=== PATIENT | female | born 1950 ===

== ENCOUNTER 2017-08-18 21:10 | Inpatient (IN) | payer MEDICARE, OTHER ==
[~2017-08-18] VITALS: Ht 147.3 cm; Wt 107.1 kg
[2017-08-18 22:35] VITALS: BP 111/63; PULSE 59; RESP 16; O2SAT 100
[2017-08-18] MEDS ORDERED: WARF3TAB7 PO (22:49)
[2017-08-18] MEDS ORDERED: CETI-343 PO (22:49)
[2017-08-18] MEDS ORDERED: POTA20TA16 PO (22:49)
[2017-08-18] MEDS ORDERED: TORS20TA3 PO ×2 (22:49)
[2017-08-18] MEDS ORDERED: METF500T4 PO (22:49)
[2017-08-18] MEDS ORDERED: METO-386 PO (22:49)
[2017-08-18] MEDS ORDERED: PHEN97.511 PO (22:50)
[2017-08-18] MEDS ORDERED: BECL8.7A6 INHALATION (22:56)
[2017-08-18] MEDS ORDERED: PROP10DR5 BOTH_EARS (22:56)
[2017-08-18] MEDS ORDERED: RANI150C4 PO (22:56)
[2017-08-18] MEDS ORDERED: CALC-1021 PO (22:56)
[2017-08-18] MEDS ORDERED: MS15TCR PO (23:00)
[2017-08-18] MEDS ORDERED: INSU3INS3 SUBQ (23:00)
[2017-08-18] MEDS ORDERED: OXYC-474 PO (23:00)
[2017-08-18] MEDS ORDERED: MS30TCR PO (23:00)
[2017-08-18] MEDS ORDERED: PREG100C PO (23:00)
[2017-08-18] MEDS ORDERED: INSU100V7 SUBQ (23:00)
--- NOTE | 2017-08-18 23:10 | ED.REPORT ---
HPI-Extremity Problem Lower Date of Service Aug 18, 2017 ED Provider: Simone Dunham MD Pt is a 67 year old female with a history of recurrent abscesses, DM, CHF, and previous DVT on Warfarin who presents to the ED complaining of an ulcer to her right lower leg onset two weeks ago. She recently finished a 7-day antibiotic treatment of augmentin and cipro for her leg, but denies relief of pain. She was hospitalized in May and June of 2017 at [facility] for infection of her kidneys and C. Diff. Pt uses a wheelchair and sleeps in her chair, but states that she can ambulate with a walker at home. Not having fevers Records were requested and not received from [facility]. Nursing Notes Stated Complaint: RIGHT LEG BLISTER/CELLULITES Chief Complaint: Skin Rash/Abscess Nursing Notes Reviewed: Yes Scheduled Beclomethasone Dipropionate (Qvar) 8.7 Gm Aer.w.adap 80 MCG INHALATION DAILY Calcium Carbonate/Vitamin D3 (Oyster Shell Calcium + D Cplt) 500 Mg-200 Tablet 1 EACH PO DAILY Cetirizine HCl (24Hour Allergy) 10 Mg Tablet 10 MG PO DAILY Insulin Glargine (Lantus U100 Insulin Vial) 100 Unit/Ml Vial 40 UNIT SUBQ HS Insuln Asp Prt/Insulin Aspart (NovoLOG 70/30 U100 Insulin Flexpen) 100 Unit/Ml Unit 40 UNIT SUBQ BID Metformin (Metformin) 500 Mg Tablet 1,000 MG PO BID Metoprolol Succinate ER (Metoprolol Succinate ER) 25 Mg Tab.er.24h 25 MG PO DAILY Morphine Sulfate ER (MS Contin) 30 Mg Tablet.er 30 MG PO BID Morphine Sulfate ER (MS Contin) 15 Mg Tablet.er 15 MG PO daily at noon Potassium Chloride (Potassium Chloride) 20 Meq Tab.er.prt 20 MEQ PO DAILY TAKE WITH FOOD Pregabalin (Lyrica) 100 Mg Capsule 100 MG PO TID Propylene Glycol/Peg 400 (Systane Gel Eye Drops) 10 Ml Drops.gel 1 DROP BOTH_ EARS BID Ranitidine (Ranitidine) 150 Mg Capsule 150 MG PO BID Torsemide (Torsemide) 20 Mg Tablet 40 MG PO DAILY Torsemide (Torsemide) 20 Mg Tablet 20 MG PO daily @1400 Warfarin Sodium (Warfarin Sodium) 3 Mg Tablet 6 MG PO DAILY Scheduled PRN Oxycodone (Roxicodone) 5 Mg Tablet 10 MG PO QID PRN PRN For Pain Phenazopyridine (Azo Urinary Pain Relief) 97.5 Mg Tablet 195 MG PO TID PRN PRN bladder pain General Time Seen by MD: 22:33 Chief Complaint Other (Ulcer to right lower leg ) Hx Obtained From: Patient Arrived By: Wheelchair Onset Occurred: More than a week ago... (2 weeks) Symptom Duration: Constant Location: : Leg right Quality: Painful Severity: Current: Moderate Severity: Maximum: Moderate Recent Healthcare: Recent doctor visit, Recent hospitalization Similar Sx Previous: Yes Past Medical History Past Medical History Notes: Full code Goes to [facility] Uses wheelchair but is able to ambulate with walker at home Past Medical History Recurrent abscesses Acid reflux Cellulitis on legs Reports: Congestive heart failure, Diabetes mellitus Social History Other Social History: Good social support Ambulatory Status Wheelchair Review of Systems Painful ulcer on right leg and foot Cellulitis pain Musculoskeletal: Reports: Extremity pain Complete sys rev & neg: except as marked. Cardiovascular: Reports: Edema, Denies: Chest pain Female: Reports: Dysuria Physical Exam Initial Vital Signs Vital Signs (First) Date Time Temp Pulse Resp B/P Pulse Ox O2 Delivery O2 Flow Rate FiO2 08/18/17 22:35 37.2 59 16 111/63 100 Room Air Initial VS: Reviewed Head / Eyes: Atraumatic, Normocephalic Neck: Supple, Full range of motion Neurologic: Alert, Oriented, Nonfocal Psychiatric: Mood/affect normal, Behavior normal, Normal thought content Lower Extremity / Pelvis / MS: Neurologic intact, Vascular intact 4x6 cm superficial ulceration above lateral malleolus 7x4 cm bullae overlying tibia with surrounding erythema and warmth Chronic venous stasis changes bilaterally No lymphangitic streaking Ankle / Foot: Neurologic intact, Vascular intact Right foot is warm with no pulses appreciated Ulcer over distal 5th metatarsal on right foot with full thickness General/Constitutional: Awake, Alert Respiratory / Chest: Atraumatic, No respiratory distress Bibasilar crackles bilaterally Cardiovascular: Heart rate NL, Regular rhythm, Heart sounds NL, No gallop, No murmurs, No rubs Skin: Warm, Dry Rash / Lesion Notes: Sacral and buttock decubiti present no discharge or erythema. Also has tinea intertrigo in the groin and abdominal pannus Fungal changes on skin folds of groin Abdomen: Soft, Non-tender RUQ scar from cholecystectomy Interpretation & Diagnostics ULTRASOUND RIGHT LEG: No evidence of DVT. BLADDER SCAN: 74 cc's of urine Lab Results Interpretation Result Diagram: 08/19/17 0033 08/19/17 0033 Test 08/19/17 00:33 08/19/17 00:38 White Blood Count 8.7th/mm3 (3.8-10.1) Red Blood Count 4.57mil/mm3 (3.90-5.20) Hemoglobin 10.6g/dL (12.0-15.6) Hematocrit 35.3% (35.0-46.0) Mean Corpuscular Volume 77.2fL (81-100) Mean Corpuscular Hemoglobin 23.2pg (27.0-35.0) Mean Corpuscular Hemoglobin Concent 30.0% (32.0-37.0) Red Cell Distribution Width 15.6% (12.3-15.4) Platelet Count 302bil/L (150-400) Neutrophils (%) (Auto) 71.9% (40-74) Lymphocytes (%) (Auto) 19.3% (14-46) Monocytes (%) (Auto) 6.1% (4-12) Eosinophils (%) (Auto) 1.8% (0-5) Basophils (%) (Auto) 0.3% (0-3) Erythrocyte Sedimentation Rate 72mm/hr (0-40) Prothrombin Time 12.5sec (8.1-12.5) Prothromb Time International Ratio 1.16ratio Sodium Level 132mEq/L (134-144) Potassium Level 4.8mEq/L (3.5-5.2) Chloride Level 90mEq/L (97-108) Carbon Dioxide Level 28mmol/L (18-29) Blood Urea Nitrogen 27mg/dL (8-27) Creatinine 1.05mg/dL (0.57-1.00) Estimat Glomerular Filtration Rate 75mL/min (>59) Glucose Level 369mg/dL (60-99) Calcium Level 8.3mg/dL (8.5-10.1) Magnesium Level 1.9mg/dL (1.6-2.6) Total Bilirubin 0.2mg/dL (0.0-1.2) Aspartate Amino Transf (AST/SGOT) 15U/L (0-50) Alanine Aminotransferase (ALT/SGPT) 8U/L (0-32) Alkaline Phosphatase 93U/L (25-165) Pro-B-Type Natriuretic Peptide 86pg/mL (0-301) Total Protein 7.8g/dL (6.4-8.4) Albumin 3.1g/dL (3.4-5.0) Hold [place] Top Tube Received (Received) Lab Results Interpretation: INR 1.16 ECG Interpretation ECG Interpretation: Low voltage Sinus rhythm, rate 98 Time: 22:53 Interpreted by: ED physician X-Ray Chest Interpretation Chest Xray Interpretation: Elevated right la-diaphragm No acute changes View: Portable, 1 view Interpretation / Wet Read by: Wet read ED physician X-Ray Interpretation Xray Interpretation: Right Foot X-Ray: Periosteal distal 5th metatarsal with cause for concern of osteomyelitis X-Ray Ordered: Foot right Interpretation / Wet Read by: Wet read ED physician Xray Interpretation: Right Tibia/Fibula X-Ray: No acute bony changes X-Ray Ordered: Tibia fibula right Interpretation / Wet Read by: Wet read ED physician Re-Eval/Medical Decision Med Decision/Clinical Course 67-year-old female from [place] and normally followed at the [facility] clinic. She is here tonight because of recurrent large blisters on her right leg. She has chronic venous stasis changes and there does appear to be some cellulitic change associated with the right leg blisters. Additionally her right foot has a full-thickness ulcer with erythema and warmth and changes I find suspicious for osteomyelitis on plain films. She has an elevated white blood cell count and an elevated ESR. Additionally she has chronic sacral and buttock decubiti. Blood cultures have been obtained, she has not yet provided a urine specimen. She has been started on meropenem for presumed infected diabetic foot ulcer with osteomyelitis. She will be admitted to the hospitalist service. She has chronic atrial fibrillation and INR are subtherapeutic. I will defer correction of her INR to the hospitalist service given her chronic atrial fibrillation. Source of Hx: Old records Summary of Info: Records were requested and not received from [facility]. Re-Evaluation/Progress #1: Time of Eval: 22:39 Re-Evaluation/Progress Note: Pt rechecked. Checked current medications with pt. Re-Evaluation/Progress #2: Time of Eval: 01:43 Re-Evaluation/Progress Note: Pt rechecked. Discussed all imaging results and plan for admission. Pt wants to be full code. Pt understands and agrees with plan. All questions addressed. Consultation #1: Referral / Consult Name: Darvin Lemons MD Call Returned at: 01:49 Clinic Charge Nurse: Will see patient, Agrees with eval, Agrees with plan Note: Discussed pt's case with perforating machine operator, Dr. Lemons. He will see pt tomorrow. Consultation #2: Referral / Consult Name: Chad Bermudez MD Consulted With: Hospitalist Call Returned at: 01:53 Clinic Charge Nurse: Will see patient, Agrees with plan, Accepts admit Note: Discussed pt's case with hospitalist, Dr. Bermudez. Counseled Regarding: Diagnosis, Lab results, Need for admission Discharge & Departure Impression: Primary Impression: Osteomyelitis of right foot Osteomyelitis type: unspecified type Qualified Code: M86.9 - Osteomyelitis, unspecified Additional Impressions: Venous stasis of lower extremity Type 2 diabetes mellitus, uncontrolled Diabetes mellitus complication status: with unspecified complications Diabetes mellitus assistant terminal manager insulin use: unspecified residential insulin use status Qualified Code: E11.8 - Type 2 diabetes mellitus with unspecified complications Inadequate anticoagulation Disposition: ADMITTED TO HOSPITAL Discharge Condition All VS Reviewed: Yes Condition: Stable Scribe Attestation Portions of this note were transcribed by Fabiana Lazar. I, Dr. Dunham, personally performed the history, physical exam and medical decision-making; I reviewed and confirmed the accuracy of the information in the transcribed note. Simone Dunham MD Aug 18, 2017 23:10 Fabiana Lazar Aug 18, 2017 23:11
[2017-08-19] MEDS ORDERED: Morphine ER 100 mg (MS Contin) Tablet PO ONE (00:25)
[2017-08-19] MEDS ORDERED: Morphine ER 30 mg (MS Contin) Tablet PO ONE (00:30)
[2017-08-19 00:42] LABS: BASOPHILS % (AUTO) 0.3 % (0-3); EOSINOPHILS % (AUTO) 1.8 % (0-5); MONOCYTES % (AUTO) 6.1 % (4-12); Mean Corpuscular Hemoglobin 23.2 pg (27.0-35.0); Mean Corpuscular Volume 77.2 fL (81-100); NEUTROPHILS % (AUTO) 71.9 % (40-74); Platelet Count 302 bil/L (150-400)
[2017-08-19 00:58] LABS: INR 1.16 ratio
[2017-08-19 01:00] LABS: ERYTHROCYTE SEDIMENTATION RATE 72 mm/hr (0-40)
[2017-08-19 01:18] LABS: Magnesium 1.9 mg/dL (1.6-2.6)
[2017-08-19 01:28] VITALS: BP 116/68; PULSE 59; RESP 16; O2SAT 100
[2017-08-19] MEDS ORDERED: Meropenem Inj 1,000 MG in 0.9% Sodium Chloride 50 ML IV ONE (01:50)
[2017-08-19] MEDS ORDERED: Alum-Mag Hydrox-Simeth 30 mL Suspension PO PRN ×2 (02:25→02:30)
[2017-08-19] MEDS ORDERED: Ondansetron 2 mg/mL 2 mL Inj IVPUSH PRN ×2 (02:25→02:30)
[2017-08-19] MEDS ORDERED: Polyethylene Glycol (PEG) 17 Gm Powder PO PRN (02:30)
[2017-08-19] MEDS ORDERED: Phenazopyridine 97.5 mg Tablet PO PRN (02:35)
[2017-08-19] MEDS: Vancomycin Dose per Pharmacist XX SCH ×2 (02:40→08:26)
[2017-08-19] MEDS ORDERED: Glucose 40% Oral Gel 15 Gm Tube PO PRN (02:40)
[2017-08-19 03:08] VITALS: BP 125/73; PULSE 107; RESP 18; O2SAT 90
--- NOTE | 2017-08-19 03:13 | PCM.HPMED ---
Subjective Date of Service Aug 19, 2017 Primary Provider: Admitting Physician: Chad Bermudez MD Primary Care Physician: Nopodilon Attending Physician: Chad Bermudez MD Admit Status: Full Admit Chief Complaint: RLE Cellulitis/Ulcer History of Present Illness: Patient is a 67 y/o Female with past medical history of DMT2, CHF, DVTs on Warfarin, and recurrent abscesses with two weeks of lower extremity swelling and erythema. She has recently completed a 7 day antibiotic regimen 2 days ago of Augmentin and Cipro. Last abx dose was 2 days ago. Patient denies any relief of pain or swelling in the RLE. She states that she has had blisters on the back of her leg. The blister on the back was drained previously, but another on the front appeared about a day ago. Associated symptoms include diarrhea which started today, and urinary retention. Patient denies fevers/ chills, CP, SOB, ABD pain, Nausea, vomiting. Patient walks with a walker normally, but has been using a wheelchair while she has an infection in her leg. She also denotes posterior painful cramps in the RLE. Patient was recently hospitalized in May and June of this year for kidney infection and CDiff. In the ED, Patient was afebrile and normotensive. She was given one dose of Meropenem 1g IV and Morphine and Oxycodone for pain. Review of Systems: ROS reviewed and negative unless otherwise noted above. Home Medications Beclomethasone Dipropionate (Qvar) 8.7 Gm Aer.w.adap 80 MCG INHALATION DAILY Calcium Carbonate/Vitamin D3 (Oyster Shell Calcium + D Cplt) 500 Mg-200 Tablet 1 EACH PO DAILY Cetirizine HCl (24Hour Allergy) 10 Mg Tablet 10 MG PO DAILY Insulin Glargine (Lantus U100 Insulin Vial) 100 Unit/Ml Vial 40 UNIT SUBQ HS Insuln Asp Prt/Insulin Aspart (NovoLOG 70/30 U100 Insulin Flexpen) 100 Unit/Ml Unit 40 UNIT SUBQ BID Metformin (Metformin) 500 Mg Tablet 1,000 MG PO BID Metoprolol Succinate ER (Metoprolol Succinate ER) 25 Mg Tab.er.24h 25 MG PO DAILY Morphine Sulfate ER (MS Contin) 30 Mg Tablet.er 30 MG PO BID Morphine Sulfate ER (MS Contin) 15 Mg Tablet.er 15 MG PO daily at noon Potassium Chloride (Potassium Chloride) 20 Meq Tab.er.prt 20 MEQ PO DAILY TAKE WITH FOOD Pregabalin (Lyrica) 100 Mg Capsule 100 MG PO TID Propylene Glycol/Peg 400 (Systane Gel Eye Drops) 10 Ml Drops.gel 1 DROP BOTH_ EARS BID Ranitidine (Ranitidine) 150 Mg Capsule 150 MG PO BID Torsemide (Torsemide) 20 Mg Tablet 40 MG PO DAILY Torsemide (Torsemide) 20 Mg Tablet 20 MG PO daily @1400 Warfarin Sodium (Warfarin Sodium) 3 Mg Tablet 6 MG PO DAILY PMH Recurrent abscesses Acid reflux Cellulitis on legs Congestive heart failure Diabetes mellitus Surgical History Cholecystectomy Family History Noncontributory Social History Hx Alcohol Use: No Hx Substance Use: No Living Arrangement: with Family Exam Vital Signs Vital Sign - Last Date Time Temp Pulse Resp B/P Pulse Ox O2 Delivery O2 Flow Rate FiO2 08/19/17 01:28 37.1 59 16 116/68 100 Room Air Exam Constitutional: Somnolent, but rousable to voice and answers questioning. Alert and oriented x3. No acute distress. Head: normocephalic and atraumatic Eyes: pupils equal round and reactive to light. No scleral icterus Heart: regular rate and rhythm. no murmurs, rubs, or gallops. 1+ pitting edema. Lungs: clear to auscultation, no wheeze, rales, or rhonchi ABD: soft, nontender. suprapubic fullness. bowel sounds present throughout. Musculoskeletal: moves all four extremities appropriately Neuro: CN II-XII intact. no focal deficits. Skin: Circumferential nonblanching erythema on RLE. 5x3" tense bulla on anterior aspect of RLE draining serosanguinous fluid. Old drained bulla on posterior aspect of RLE. No crepitus, but associated tenderness. 0.5x0.5" ulcer on lateral aspect of 5th metatarsal of the RLE. Chronic venostasis changes to the LLE with associated tenderness. No obvious wounds or ulcers on the LLE. Psych: Sleepy, but rousable. Appropriate mood and affect. Lab and Diagnostics Labs Item Value Date Time Red Blood Count 4.57 mil/mm3 08/19/1732 Hematocrit 35.3 % 08/19/1732 Mean Corpuscular Volume 77.2 fL L 08/19/1732 Mean Corpuscular Hemoglobin 23.2 pg L 08/19/1732 Mean Corpuscular Hemoglobin Concent 30.0 % L 08/19/1732 Red Cell Distribution Width 15.6 % H 08/19/1732 Neutrophils (%) (Auto) 71.9 % 08/19/1732 Lymphocytes (%) (Auto) 19.3 % 08/19/1732 Monocytes (%) (Auto) 6.1 % 08/19/1732 Eosinophils (%) (Auto) 1.8 % 08/19/1732 Basophils (%) (Auto) 0.3 % 08/19/1732 Erythrocyte Sedimentation Rate 72 mm/hr H 08/19/1732 Lactic Acid Level 1.5 mmol/L 08/19/1732 Total Creatine Kinase 44 U/L 08/19/1732 Estimat Glomerular Filtration Rate 75 mL/min 08/19/1732 Calcium Level 8.3 mg/dL L 08/19/1732 Magnesium Level 1.9 mg/dL 08/19/1732 Total Bilirubin 0.2 mg/dL 08/19/1732 Aspartate Amino Transf (AST/SGOT) 15 U/L 08/19/1732 Alanine Aminotransferase (ALT/SGPT) 8 U/L 08/19/1732 Alkaline Phosphatase 93 U/L 08/19/1732 Pro-B-Type Natriuretic Peptide 86 pg/mL 08/19/1732 Total Protein 7.8 g/dL 08/19/1732 Albumin 3.1 g/dL L 08/19/1732 Prothrombin Time 12.5 sec 08/19/1732 Prothromb Time International Ratio 1.16 ratio 08/19/1732 Result Diagram: 08/19/173208/19/1732 Microbiology Blood Cultures Pending X-Rays, CTs and MRIs Official XR Right foot read pending Official CXR read pending 12-lead ECG Sinus rhythm HR 98 Assessment & Plan Patient is a 67 y/o Female with past medical history of DMT2, CHF, DVTs on Warfarin, and recurrent abscesses with two weeks of lower extremity swelling and erythema. She has recently completed a 7 day antibiotic regimen 2 days ago of Augmentin and Cipro. Last abx dose was 2 days ago. -Acute Right Foot Diabetic Ulcer, POA, Active, Stable, r/o Osteomyelitis - Patient w/ h/o DMT2 on insulin with infection to RLE and new 0.5x0.5" ulcer to lateral aspect of R 5th metatarsal - Elevated ESR and radiologic findings suggestive of osteomyelitis - Podiatry has been consulted and will see patient in the AM - Patient given one dose of Meropenem 1g IV in the ED - Start patient on Vancomycin, pharmacy to dose. - MRI of Right foot to confirm diagnosis - Consult Infectious Disease - Acute Cellulitis to Right Lower Extremity, POA, Active, Stable, r/o Necrotizing Fasciitis - Patient has cellulitic infection with bullae that has failed outpatient treatment with 7 days of Augmentin and Cipro. - LRINEC Score is 5 with moderate risk for Necrotizing Fasciitis infection - Patient received one dose of 1g Meropenem in ED - Start Vancomycin, pharmacy to dose - Start empiric Clindamycin 600mg IV Q8 - IVF @75ml/hr - patient has h/o CHF with no known status of cardiac function -Microcytic Anemia, chronicity unknown, POA, Active, Stable - Hgb 10.6 with MCV 77.2 - Order Iron panel, replenish if low - Monitor - History of Congestive Heart Failure, type unknown, Chronic, Stable - Continue home dose of Torsemide - Monitor - History of Type 2 Diabetes Mellitus, Chronic, Stable - Hold Metformin - Continue home dose Lantus HS - Lispro low correction algorithm FULL CODE Patient is admitted for suspicion of osteomyelitis after failed outpatient treatment for cellulitis. Expected length of stay >2 midnights. Pain Evaluation: Adequate Pain Control GI Prophylaxis: Proton Pump Inhibitor VTE Prophylaxis Indicated: Meets Criteria for Anticoag Therapy VTE Prophylaxis: Theraputic Anticoag with Warfarin VTE Mechanical Devices: Intermittant Pneumatic CD Resuscitation Status: CPR: Attempt Resuscitation Attending Statement The patient was seen and examined together with Dr. Thapa on 08/19 and I agree with the history, exam and plan as outlined in the note above. Narendra Thapa DO Aug 19, 2017 03:13 Chad Bermudez MD Aug 19, 2017 06:44
[2017-08-19] MEDS ORDERED: Vancomycin Inj 2,000 MG in 0.9% Sodium Chloride 500 ML IV ONE (04:00)
[2017-08-19 04:07] LABS: Unsaturated Iron Binding 214.8 ug/dL
[2017-08-19] MEDS: 0.9% Sodium Chloride 1,000 ML IV SCH ×2 (04:11→16:55)
[2017-08-19] MEDS ORDERED: Clindamycin Inj 600 MG in IV Premix 1 EACH IV SCH (04:30)
--- NOTE | 2017-08-19 04:53 | NUR ---
Admission Pt admitted to [facility] rm 1028 at 0245 from the ED. Pt took her to ED due to her leg/foot and glute wounds. Pt is A/O x3, able to make needs known. C/o pain 5/10 on arrival. Was medicated prior to arrival in ED. IV to Rt AC patent with ABO running. IV fluids started. Pt is non compliant diabetic and needs carb consistent diet. Pt arrived in a P500 bed from the ED. Pt is cont B/B, attempted to use BSC but transfer was very unsteady, advised will need to use bed cunha until transfer can be safely done. Pt uses cane at baseline at home and sleeps in a recliner. Pt to be seen by wound care. Covered glutes with mepilex to protect when Pt uses bed cunha. Pt is CPR. Oriented to room and call light. at bedside. Care continues
[2017-08-19 05:06] LABS: INR 1.2 ratio
[2017-08-19 05:52] LABS: APPEARANCE,URINE HAZY (CLEAR,HAZY); COLOR,URINE YELLOW (YELLOW); OCCULT BLOOD,URINE LARGE (NEGATIVE); PH,URINE 5.5 (5.0-8.0); UROBILINOGEN,URINE NORMAL (NORMAL); YEAST,URINE MANY (NONE SEEN)
[2017-08-19 08:16] VITALS: BP 115/57; PULSE 105; RESP 20; O2SAT 95
[2017-08-19] MEDS: Potassium Chloride 20 mEq SR Tablet PO SCH (08:25)
[2017-08-19] MEDS: MeTOProlol XL 25 mg ER24 Tablet PO SCH (08:25)
[2017-08-19] MEDS: Fluticasone 100 mCg Inhaler INHALATION SCH ×2 (08:26→20:08)
[2017-08-19] MEDS: Insulin LISPRO 300 Unit/3 mL Inj SUBQ SCH ×4 (08:27→21:59)
--- NOTE | 2017-08-19 08:32 | DRSVH ---
PROCEDURE: X-RAY CHEST ONE VIEW, PORTABLE ([id number]) INDICATIONS: Right foot and leg swelling and erythema, diabetic TECHNIQUE: One view of the chest was acquired. COMPARISON: None. FINDINGS: Surgical changes and devices: None in the chest, right upper quadrant presumed cholecystectomy clips . Lungs and pleura: No pleural effusions or pneumothorax. Lungs are clear. Mediastinum: Mediastinal contours appear normal. Heart size is normal. Bones and chest wall: No suspicious bony lesions. Overlying soft tissues appear unremarkable. IMPRESSION: Asymmetric elevation of the right hemidiaphragm, no definite acute disease. The inspirat ory volume is reduced bilaterally, disallowing clear visualization of significant portions of each francesca ng base, greater on the right left. A followup bite 2 view the inspiratory chest plain film is recom mended for more accurate assessment. Dictated by: Silverio Lentz M.D. on 08/19/2017 at 8:29 Approved by: Silverio Lentz M.D. on 08/19/2017 at 8:31
--- NOTE | 2017-08-19 08:35 | DRSVH ---
PROCEDURE: X-RAY RIGHT FOOT COMPLETE, MINIMUM THREE VIEWS ([id number]) INDICATIONS: Right foot and leg swelling and erythema, diabetic TECHNIQUE: 3 views of the foot were acquired. COMPARISON: None. FINDINGS: Bones: No fractures or dislocations. No definite bony lesions. There is mild periosteal thickening involving the needle border of the second and third metatarsal bones, and on the oblique views at th e lateral aspect of the fifth metatarsal. Small vessel calcifications indicate likelihood of long-st anding diabetes. Soft tissues: No tibiotalar joint effusion. Achilles tendon appears normal. IMPRESSION: Small vessel calcifications noted consistent with long-standing diabetes. Periosteal shivani nges as discussed above involving the second, third and fifth metatarsal bones, but without definite findings diagnostic of osteomyelitis. Old trauma might explain the appearance. The emergency room martin mota is aware of the fifth metatarsal findings, and has some degree of concern for osteomyelitis in that area. Depending on the clinical status followup by contrast enhanced MR scanning may be shailesh anted. Note: These findings are concordant with the preliminary interpretation. Dictated by: Silverio Lentz M.D. on 08/19/2017 at 8:31 Approved by: Silverio Lentz M.D. on 08/19/2017 at 8:33
--- NOTE | 2017-08-19 08:36 | DRSVH ---
PROCEDURE: X-RAY RIGHT TIBIA/FIBULA, TWO VIEWS ([id number]) INDICATIONS: r foot and leg swelling and erythema, diabetic TECHNIQUE: 2 views of the tibia and fibula were acquired. COMPARISON: None. FINDINGS: Bones: No fractures or dislocations. No suspicious bony lesions. Soft tissues: No suspicious soft tissue calcifications or masses. IMPRESSION: No acute disease. Note: These findings are concordant with the preliminary interpretation. Dictated by: Silverio Lentz M.D. on 08/19/2017 at 8:34 Approved by: Silverio Lentz M.D. on 08/19/2017 at 8:34
--- NOTE | 2017-08-19 12:13 | CONS ---
[address] [address] CONSULTATION REPORT PATIENT: GUSTAVO SIMPSON : 1950 MR#: [id number] ADMIT: 08/19/2017 JOB ID: [id number] DATE OF SERVICE: 08/19/2017 This is a new consult which has been requested by Narendra Thapa. REASON FOR CONSULTATION: Possible severe right lower extremity infection in a diabetic. HISTORY OF PRESENT ILLNESS: The patient is a 67-year-old woman with 30 years of diabetes. She has had a variety of problems including retinopathy and severe peripheral neuropathy due to her diabetes. In addition, she has had some degree of congestive heart failure, history of DVT and chronic pain. The patient originally is actually from [place] in [facility] but prefers to come here because she has had difficulties with providers at [facility]. The recent medical history began back in early July when the patient was seen at [facility]. At that time she had a blister on the right lower extremity which started spontaneously. It was drained and then became very pruritic. There was some redness and swelling around it and the patient presented to the emergency department at [place] on or about August 06. At that time she was given vancomycin and ceftriaxone for fever and what appeared to be cellulitis. At that time, her white count was normal at 7700, and she was subsequently recommended for admission. Unfortunately, the patient left the next day, as she reported that she was actually getting better. Because of her AMA discharge on the night of August 07, the physicians provided her with Keflex and clindamycin. She was told to take these for a week. Subsequently, she was called by someone at [place], and I do not have those records. They just told her that the clindamycin and Keflex would not be adequate, and so she should switch to a combination of Augmentin and Cipro which she did. She recently completed a full week of those antibiotics. Shortly after finishing the Augmentin and Cipro, She noticed that her right lower extremity was once again worsening with more redness, swelling and large blister formation around the anterior williamson. Note that it did seem to improve initially on the Cipro and Augmentin, only to rapidly relapse when she stopped. Additionally she notes she has had a small ulcer present at the right distal metatarsal area and that has been present and irritated for years probably but only recently has began to drain spontaneously. Because of these problems, the patient came to the emergency department last night for evaluation of the two processes going on in the right lower extremity. At that time, she complained that she seemed to have more of the blisters, more redness and some loose stools. She did not have however significant fever or chills. Because of concerns about necrotizing soft tissue infection, she was admitted last night. She was initially given very broad-spectrum antibiotics but these have been narrowed somewhat overnight and ID consultation is requested At this point. It is also notable that this patient does have a history of C. diff which occurred within the past few months. PAST MEDICAL HISTORY: 1. Diabetes mellitus. a. Severe retinopathy. b. Severe peripheral neuropathy. c. Recurrent diabetic foot infections. 2. Congestive heart failure. 3. Chronic pain disorder. 4. History of DVT on Coumadin. 5. Depression. 6. Degenerative joint disease. 7. Obesity. 8. PTSD. 9. Reactive airway disease. SOCIAL HISTORY: The patient is a nonsmoker, nondrinker. She has not had any alcohol in over 20 years and was never a smoker. She used to work for the [employer] in [employer] affiliated activities but is now retired. She lives with her . FAMILY HISTORY: Negative for TB in first and second degree relatives. REVIEW OF SYSTEMS: Done. No acute headache. She does have progressive visual loss due to her diabetes, but it is not acute. No oral complaints or trouble swallowing. No sore throat. No cough, but she is sometimes short of breath and actually sleeps in a recliner. This has not changed acutely. No abdominal pain. No nausea, vomiting, but she has had some loose stools since the Cipro and Augmentin, keeping in mind she does have a prior history of C. diff. She has had some pain and burning with urination. Also note the pain in the right lower extremity as described above. Remainder of the review of systems negative. PHYSICAL EXAMINATION: Reveals an afebrile woman. Temperature 36.7, pulse 105, respiratory rate 20, blood pressure 115/57. She is saturating 95% on 2 L. She is in no acute distress. She is awake and alert. Her mental status is clear. Eyes: Without conjunctivitis at least. No temporal wasting. Note that her BMI is 49. Her weight is 106 kg. Oral cavity: No thrush or hairy leukoplakia. No gingivitis is noted. Neck: Reasonably supple, difficult to assess however due to obesity. Lungs with distant but clear breath sounds. Cardiac: Tones regular rate and rhythm. No gallops or murmurs are heard. Abdomen is obese, soft and nontender. She does not have a Muse catheter, but she does have some suprapubic fullness and says she feels like she needs to urinate. She does not have tender inguinal or femoral lymph nodes, but she states she did recently and those have spontaneously resolved. No inguinal or femoral lymph nodes present on the right, though she does report that they were swollen fairly recently. Her knees are free of synovitis. Below the knees bilaterally there is cracked dry skin with venous stasis changes. The left foot is basically normal with the lesions present. The right foot has a small but about 0.5 cm deep lesion just at the base of the 5th toe where the phalanx meets the metatarsal. A small amount of purulent material was squeezed from that area and was sent for culture. The right lower extremity is also notable for dramatic circumferential cellulitis around the distal williamson. There was a large bullae, which measures about 5 x 4 cm full of clear fluid, overlying the cellulitic area. There is no corresponding area of cellulitis on the left leg though there is dry skin and venous stasis changes bilaterally. Neurologically, the patient has neuropathy in her feet but clearly experienced pain while we attempted to get a culture from the base of the 5th toe. She does however have reduced sensation and proprioception in her feet. She can move all of her extremities. LABORATORIES: Include white blood count 8700, platelet count 300,000. Creatinine 1.05. LFTs normal. Albumin 3.1. CPK is 44. Urinalysis had greater than 50 white cells. Her blood cultures and urine cultures were just done here, so I do not have any results. I called the [facility] in [place] and found out the results of the cultures from that institution. There her urine grew a very susceptible Klebsiella on August 07 when she was admitted briefly there. Her blood cultures were negative. Cultures of the leg grew were Pseudomonas Enterococcus, a variety of other coliforms and proteus. Susceptibilities are only done for the Pseudomonas which was quite susceptible. IMAGING: Here last night included a chest radiograph which showed an elevated right hemidiaphragm, but no evidence of focal infiltrate. The x-ray of the foot showed small-vessel calcifications. There is periosteal changes, but no definitive evidence of osteo. IMPRESSION: This extremely complicated case of a 67-year-old woman with diabetes, congestive heart failure and morbid obesity, gets most of her care in [place]. She has had a small ulcer at the base of the right fifth toe on an off for a couple years, which lately has been draining a little bit. That does not seem to be the major issue. More significantly, she has had a couple weeks of impressive cellulitis involving the right lower extremity with associated bullae formation. Cultures done in [place] yielded a hodgepodge of organisms, and I am not certain which if any of these is the true pathogen. I do not think there is any evidence at this point for necrotizing soft tissue infection but rather think we are dealing with probably two separate significant diabetic lower extremity infections. The cellulitis and bullae formation with the tender lymph node certainly suggests streptococcal disease whereas the lesion on the right lateral forefoot could be more consistent with a sinus tract from underlying osteo though that is not yet completely clear. RECOMMENDATIONS: 1. The patient is currently receiving vancomycin as her primary antibiotic. I would add to that meropenem because we anticipate perhaps a wide variety of organisms based on what was found in [place]. We will later narrow our antibiotics. 2. I agree with MRI scan of her foot to see if there could be osteo. 3. We have cultured the right anterior forefoot to see if we can find an organism. 4. We are going to aspirate the bullous lesion on the right lower extremity and send that for culture in hopes of finding a more sterile or at least a semi sterile place to get an accurate culture. 5. I agree with a podiatry consult. 6. We will continue to closely follow this complex patient with you. 7. I would start her on p.o. vancomycin as prophylaxis for possible recurrent C. diff as she is at extremely high risk having recently received clindamycin as well as Cipro on an outpatient basis.
--- NOTE | 2017-08-19 12:26 | PCM.CHPPOD ---
Subjective Date of service Aug 19, 2017 History of Present Illness 67-year-old female is seen for follow-up of ulceration sub-fifth metatarsal head fright at the request of Dr. Dunham of the ED. Concern for osteomyelitis of the fifth metatarsal. Additionally patient has an infected bullae right pretibial site. She is accompanied by her . She states she has had a sore on the sub-fifth met head region right foot for many months but it has not drained and the primary problem is the williamson lesion and infection. Patient complains of intermittent numbness of her feet. She has not received regular podiatric at risk foot care previously. Reason for Consultation Ulcerations sub-fifth metatarsal head right foot with concern for osteomyelitis. Medications Beclomethasone Dipropionate (Qvar) 8.7 Gm Aer.w.adap 80 MCG INHALATION DAILY Calcium Carbonate/Vitamin D3 (Oyster Shell Calcium + D Cplt) 500 Mg-200 Tablet 1 EACH PO DAILY Cetirizine HCl (24Hour Allergy) 10 Mg Tablet 10 MG PO DAILY Insulin Glargine (Lantus U100 Insulin Vial) 100 Unit/Ml Vial 40 UNIT SUBQ HS Insuln Asp Prt/Insulin Aspart (NovoLOG 70/30 U100 Insulin Flexpen) 100 Unit/Ml Unit 40 UNIT SUBQ BID Metformin (Metformin) 500 Mg Tablet 1,000 MG PO BID Metoprolol Succinate ER (Metoprolol Succinate ER) 25 Mg Tab.er.24h 25 MG PO DAILY Morphine Sulfate ER (MS Contin) 30 Mg Tablet.er 30 MG PO BID Morphine Sulfate ER (MS Contin) 15 Mg Tablet.er 15 MG PO daily at noon Oxycodone (Roxicodone) 5 Mg Tablet 10 MG PO QID PRN PRN For Pain Phenazopyridine (Azo Urinary Pain Relief) 97.5 Mg Tablet 195 MG PO TID PRN PRN bladder pain Potassium Chloride (Potassium Chloride) 20 Meq Tab.er.prt 20 MEQ PO DAILY TAKE WITH FOOD Pregabalin (Lyrica) 100 Mg Capsule 100 MG PO TID Propylene Glycol/Peg 400 (Systane Gel Eye Drops) 10 Ml Drops.gel 1 DROP BOTH_ EARS BID Ranitidine (Ranitidine) 150 Mg Capsule 150 MG PO BID Torsemide (Torsemide) 20 Mg Tablet 40 MG PO DAILY Torsemide (Torsemide) 20 Mg Tablet 20 MG PO daily @1400 Warfarin Sodium (Warfarin Sodium) 3 Mg Tablet 6 MG PO DAILY Past Medical History Surgeries: No Medical History: Surgical History: Social History Hx Alcohol Use: No Hx Substance Use: No Podiatry Consult Exam Vital Signs Vital Sign - Last Date Time Temp Pulse Resp B/P Pulse Ox O2 Delivery O2 Flow Rate FiO2 08/19/17 08:16 36.7 105 20 115/57 95 Nasal Cannula 2.00 Intake and Output 08/18/17 08/18/17 08/19/17 Cumulative From/Thru 15:00 23:00 07:00 08/18/17 22:35 - 08/19/17 06:55 Intake Total 343 ml 343 ml Output Total 200 ml 200 ml Balance 143 ml 143 ml Intake Oral 0 ml 0 ml IV Total 343 ml 343 ml Output Urine Total 200 ml 200 ml Bladder Scan Volume Amount 74 # Bowel Movements 1 1 Result Diagram: 08/19/17 0033 08/19/17 0033 Lab Test 08/19/17 00:33 08/19/17 00:38 08/19/17 04:30 08/19/17 05:30 White Blood Count 8.7th/mm3 (3.8-10.1) Red Blood Count 4.57mil/mm3 (3.90-5.20) Hemoglobin 10.6g/dL (12.0-15.6) Hematocrit 35.3% (35.0-46.0) Mean Corpuscular Volume 77.2fL (81-100) Mean Corpuscular Hemoglobin 23.2pg (27.0-35.0) Mean Corpuscular Hemoglobin Concent 30.0% (32.0-37.0) Red Cell Distribution Width 15.6% (12.3-15.4) Platelet Count 302bil/L (150-400) Neutrophils (%) (Auto) 71.9% (40-74) Lymphocytes (%) (Auto) 19.3% (14-46) Monocytes (%) (Auto) 6.1% (4-12) Eosinophils (%) (Auto) 1.8% (0-5) Basophils (%) (Auto) 0.3% (0-3) Erythrocyte Sedimentation Rate 72mm/hr (0-40) Sodium Level 132mEq/L (134-144) Potassium Level 4.8mEq/L (3.5-5.2) Chloride Level 90mEq/L (97-108) Carbon Dioxide Level 28mmol/L (18-29) Blood Urea Nitrogen 27mg/dL (8-27) Creatinine 1.05mg/dL (0.57-1.00) Estimat Glomerular Filtration Rate 75mL/min (>59) Glucose Level 369mg/dL (60-99) Lactic Acid Level 1.5mmol/L (0.4-2.0) Calcium Level 8.3mg/dL (8.5-10.1) Magnesium Level 1.9mg/dL (1.6-2.6) Iron Level 37ug/dL (35-150) Total Iron Binding Capacity 252ug/dL (250-450) Percent Iron Saturation 15%sat (15-50) Unsaturated Iron Binding 214.8ug/dL Total Bilirubin 0.2mg/dL (0.0-1.2) Aspartate Amino Transf (AST/SGOT) 15U/L (0-50) Alanine Aminotransferase (ALT/SGPT) 8U/L (0-32) Alkaline Phosphatase 93U/L (25-165) Total Creatine Kinase 44U/L (21-215) C-Reactive Protein 7.5mg/dL (0.0-0.5) Pro-B-Type Natriuretic Peptide 86pg/mL (0-301) Total Protein 7.8g/dL (6.4-8.4) Albumin 3.1g/dL (3.4-5.0) Hold [place] Top Tube Received (Received) Prothrombin Time 12.9sec (8.1-12.5) Prothromb Time International Ratio 1.20ratio Procalcitonin 0.05ng/mL (0.00-0.08) Urine Color Yellow (YELLOW) Urine Appearance Hazy (CLEAR,HAZY) Urine pH 5.5 (5.0-8.0) Urine Specific [place] 1.015 (1.003-1.035) Urine Protein 30mg/dL (NEG,TRACE) Urine Glucose (UA) 1000mg/dL (NEGATIVE) Urine Ketones Negativemg/dL (NEGATIVE) Urine Occult Blood Large (NEGATIVE) Urine Nitrite Negative (NEGATIVE) Urine Bilirubin Negative (NEGATIVE) Urine Urobilinogen Normalmg/dL (NORMAL) Urine Leukocyte Esterase Moderate (NEGATIVE) Urine RBC >50/hpf (0-2) Urine WBC >50/hpf (0-5) Urine Epithelial Cells Many/hpf (NONE-MOD) Urine Crystals None seen (NONE SEEN) Urine Bacteria Moderate/hpf (NONE-FEW) Urine Hyaline Casts None/lpf (NONE) Urine Granular Casts None seen (NONE SEEN) Urine Waxy Casts None seen (NONE SEEN) Urine Red Blood Cell Casts None seen (NONE SEEN) Urine White Blood Cell Casts None seen (NONE SEEN) Urine Mucus None seen (None Seen) Urine Trichomonas None seen (NONE SEEN) Urine Yeast Many (NONE SEEN) Urinalysis Comment None Urine Culture Reflexed Indicated Test 08/19/17 12:00 Diagnostics X-ray reviewed and shows diffuse degenerative changes and osteopenia, but I do not discern any discrete lytic lesions at the plantar lateral fifth met head which correspond to the ulcer and which suggest osteomyelitis. Exam Additional Information: Patient is seen in conjunction with the inpatient wound care nurse who has drained the pretibial bullae and applied Mepilex dressing. Lower extremity exam shows a pleasant morbidly obese female lying supine in her hospital bed and in no acute distress. Vascular DP pulses are trace to +1 over 4 bilaterally, posterior tibial pulses are nonpalpable, capillary refill 3-4 seconds. Neurologic epicritic sensations are generally intact to gross exam plantar surface of the feet bilaterally. Dermatologic exam shows pedal skin to be dry webspaces without fissures or maceration, nails grossly thickened lytic and dystrophic. There is a large bullous lesion right pretibial site measuring approximately 5 x 8 cm with circumferential erythema and induration at this level. There is no apparent contiguity with the ankle or foot and no significant proximal extension noted. There is a 1 x 1 x 0.1 cm ulceration plantar lateral fifth metatarsal head which does not probe to deep tissues, no overhanging wound margins, no significant hyperkeratosis and the joint is nonerythematous and nonedematous. Musculoskeletal goal subtalar midtarsal ranges of motion within normal limits no gross forefoot or digital deformities, the plantar lateral fifth metatarsal head shows markedly attenuated plantar fat pad. Assessment & Plan Assessment Grade 1 neuropathic type ulcer plantar lateral fifth metatarsal head right foot , without radiographic or clinical evidence of osteomyelitis at present., Infected bullae right pretibial site. Problems: Plan At this visit the ulcer was conservatively debrided with a 15 blade, cleansed with saline, Mepilex dressing applied. Wound care nurse will fabricate and apply an appropriate aperture pad for this site, dressing will be changed every 48 hours. Wound care nurse to trim mycotic nails and it is recommended patient follow with podiatry on an outpatient basis once discharged for fabrication of accommodative insoles and ongoing at risk foot care. Podiatry to be consulted should condition of the right foot worsened during patient's inpatient hospital stay. VTE Prophylaxis: Theraputic Anticoag with Warfarin VTE Mechanical Devices: Intermittant Pneumatic CD Jesus Worley DPM Aug 19, 2017 12:26
[2017-08-19] MEDS: Meropenem Inj 1,000 MG in 0.9% Sodium Chloride 100 ML IV SCH ×2 (12:48→21:52)
[2017-08-19 12:58] VITALS: BP 103/55; PULSE 70; RESP 18; O2SAT 95
--- NOTE | 2017-08-19 12:59 | PCM.PNMED ---
Subjective Date of Service Aug 19, 2017 Subjective Patient is in bed, complaining of chronic pains and headaches, pain in right lower extremity. Exam Vital Signs Vital Sign - Last Date Time Temp Pulse Resp B/P Pulse Ox O2 Delivery O2 Flow Rate FiO2 08/19/17 08:16 36.7 105 20 115/57 95 Nasal Cannula 2.00 Intake and Output 08/18/17 08/18/17 08/19/17 Cumulative From/Thru 14:59 22:59 06:59 08/18/17 22:35 - 08/19/17 06:55 Intake Total 343 ml 343 ml Output Total 200 ml 200 ml Balance 143 ml 143 ml Intake Oral 0 ml 0 ml IV Total 343 ml 343 ml Output Urine Total 200 ml 200 ml Bladder Scan Volume Amount 74 # Bowel Movements 1 1 Exam Patient was seen and examined. IVs and Medications Medications Reviewed: Medications were reviewed in detail Lab and Diagnostics Result Diagram: 08/19/17 0033 08/19/17 0033 Microbiology Blood Cultures Pending X-Rays, CTs and MRIs Official XR Right foot read pending Official CXR read pending 12-lead ECG Sinus rhythm HR 98 Assessment & Plan Patient is a 67 y/o Female with past medical history of DMT2, CHF, DVTs on Warfarin, and recurrent abscesses with two weeks of lower extremity swelling and erythema. She has recently completed a 7 day antibiotic regimen 2 days ago of Augmentin and Cipro. Last abx dose was 2 days ago. She presented with right lower extremity erythema, edema and pain in the right foot. Patient also has multiple ulcers on her buttocks. Acute Right Foot Diabetic Ulcer, new 0.5x0.5" ulcer to lateral aspect of R 5th metatarsal Osteomyelitis. Acute Cellulitis to Right Lower Extremity - Stable, not under control - Elevated ESR and radiologic findings suggestive of osteomyelitis - Podiatry and infectious disease has been consulted, help appreciated Plan - IV Vancomycin/meropenem - MRI of the right foot Chronic pain - Resume home medications Microcytic Anemia - Stable, probably anemia of chronic disease and iron deficiency anemia Plan - Monitor CBC daily Chronic Congestive Heart Failure, type unknown - Stable - Continue current meds Type 2 Diabetes Mellitus - Stable - Continue insulin sliding scale History of lower extremity DVT - Patient is on Coumadin - I discussed with the patient the risks of anticoagulation - risk of severe bleeding, intracranial bleeding, subsequent disability or even as a result of bleeding while on ACT; patient is willing to accept the risks and continue with ACT. - Monitor INR daily, adjust Coumadin as needed. Start Lovenox twice a day until INR is above 2. DVT PROPHYLAXIS: Lovenox/Coumadin Code status: Patient would like to be full code Disposition: discharge in 1-3 days after patient improves. Plan of care discussed with patient, treatment team; Labs, radiology tests reviewed. Plan of care, medication side effects, home medication, diagnostic procedures and available alternatives were discussed and reviewed with patient. All questions answered. Patient verbalized understanding, approved and agreed to plan of care. GI Prophylaxis: Proton Pump Inhibitor VTE Prophylaxis: Theraputic Anticoag with Warfarin VTE Mechanical Devices: Intermittant Pneumatic CD Resuscitation Status: CPR: Attempt Resuscitation Armando Potts MD Aug 19, 2017 12:59 Resuscitation Status: CPR: Attempt Resuscitation Armando Potts MD Aug 19, 2017 12:59
[2017-08-19] MEDS: Morphine ER 15 mg (MS Contin) Tablet PO SCH (13:49)
[2017-08-19] MEDS: Morphine ER 30 mg (MS Contin) Tablet PO SCH ×2 (13:50→20:09)
--- NOTE | 2017-08-19 14:13 | NUR ---
NUTRITION ASSESSMENT: ASSESS: 67 YO female admitted for RLE cellulitis and diabetic foot ulcer of the sub-fifth metatarsal head s/p conservative debridement per podiatry, rule out osteomyelitis. Additional pt with infected bullae R pretibial site and multiple ulcer on buttock, wound eval pending PMHx: DM type 2, CHF, DVT, recurrent abscesses, acid reflux. LABS: Reviewed. Na 132, Cr 1.05, Glu 369, Alb 3.1. MEDS: Reviewed. GI: BM x 1 (08/19) SKIN: RLE cellulitis, diabetic foot ulcer (sub-fifth metatarsal head) s/p conservative debridement per podiatry, infected bullae R pretibial site and multiple ulcer on buttock, wound eval pending. CURRENT WT: 105.64 kg. IBW: 43.6 kg Adj BW: 59.1 kg. DIET: Diabetic. PO 100% x 1 meals. EST. NEEDS (WOUNDS, OBESITY): 7628-4287 kcals (30-35 kcals/kg Adj BW), 70-105 g protein (1.2-1.8 g/kg Adj BW) NUTRITION DIAGNOSIS: 1.) Increased nutrient needs related to increased demand for nutrients as evidenced by current skin issues. NUTRITION INTERVENTION: 1.) Will add Guillermo with diet sprite BID (breakfast and dinner tray) to encourage wound healing. Current diet should provide adequate kcals to meet pt est. needs. MONITOR / EVAL: PO intake, labs, nutritional status. Follow per moderate nutritional risk guidelines.
--- NOTE | 2017-08-19 15:01 | NUR ---
6 cm L x 4 cm W bulla on lateral anterior RLE filled with straw-colored fluid surrounded by erythemic tissue, tender to touch, no weeping in this periwound tissue. Bulla was drained and gently blotted with NS soaked gauze, then covered with large bordered sacral Mepilex. The silicone facing and border of this dressing should be gentler to patient's periwound skin. R foot plantar 5th met head callous wound, approximately 1 cm L x 1 cm W x 0.1 cm D, dark pink wound bed once Dr. Meir reich debrided overlaying crust. Very small amount of sanguinous fluid coagulated quickly. Wound was cleansed, blotted dry, and a 0.5 cm thick moleskin was cut into C-shape and placed over met head for off-loading. This was then covered with bordered 4 x 4 Mepilex dressing. All nails were trimmed with podiatry trimmers and Atrac-Tain (urea and [id number]) lotion was applied to thick, scaling feet, avoiding space between toes. Stage 3 pressure injury to R posterior gluteal/thigh fold, beefy red wound bed, macerated, ruffled margins with mild epibole. 1.5 cm L x 1.5 cm W x 0.2 cm D. Stage 2 pressure injury to R intergluteal fold with beefy red wound bed, macerated margins. 1 cm L x 1 cm W x 0.2 cm D. Wounds were cleansed and coated heavily with Calmoseptine. Entire perineum, skin folds, and panniculus were coated with thick exudate with cottage-cheese texture, very odorous, when, once cleansed away, revealed bright, erythemic rash with multiple skin breaks, weeping and oozing. Satellite lesions noted on anterior thighs and distinct rash margins extend proximally on lower abdomen and distally on anterior thighs. All areas were thoroughly cleansed with soap and water washcloth, then rinsed. Dry towels were placed into skin folds and left in place for short period to absorb moisture. Mepilex sheet foam was cut into strips and placed into folds. Nystatin ointment has been ordered and should be applied to all perineal and pannicular rash areas BID. Once Nystatin ointment has been rubbed in as thoroughly as possible, Mepilex sheet foam should be placed into skin folds. This will wick moisture out of folds and hopefully help these deep folds dry out. A Muse cath will be placed to improve incontinence associated maceration and improve skin integrity. Once Muse is placed and fungal rash has improved, dressings will be applied to patient's pressure injuries. At this time, no dressings will stick onto Nystatin coated skin and getting fungus rash improved is priority, as PIs are not likely to heal in presence of such extensive fungus. CWON will check on patient's wounds daily. Addendum: 08/20/17 at 1015 by MAUREEN GEE RN Please note correction: Stage 3 PI of gluteal/posterior thigh fold is on L (not R).
--- NOTE | 2017-08-19 17:15 | DRSVH ---
PROCEDURE: US VEINOUS LEG DUPLEX UNILATERAL, RIGHT INDICATIONS: history of DVT, leg swelling TECHNIQUE: Real-time imaging, as well as color and pulse Doppler interrogation, were performed of the lower extr emity deep veins from the inguinal ligament to the popliteal fossa. COMPARISON: None. FINDINGS: The deep veins are normally compressible, and free of intraluminal thrombus. Color and pu lse Doppler demonstrate normal phasic intraluminal flow. There is normal augmentation response to di stal compression maneuver. IMPRESSION: No deep venous thrombosis identified within the right lower extremity. Dictated by: Jeovany SCHAEFER Interpreted: Cynthia Zabala MD on 08/19/2017 at 8:58 Approved by: Cynthia Zabala M.D. on 08/19/2017 at 17:13
[2017-08-19] MEDS: Vancomycin Inj 1,000 MG in IV Premix 1 EACH IV SCH (17:21)
--- NOTE | 2017-08-19 18:24 | NUR ---
Meza catheter/MRI refusal Pt. was urinating very frequently this morning, and was unable to get up to the BSC in time to void. We had been using the bedpan this morning, but her buttock sores were getting soiled with urine. notified and order to place meza cath to reduce maceration and promote healing. Meza placed this afternoon and pt. has been feeling much more comfortable. Unfortunately, she went to get an MRI of the foot and refused to have it done once she was in the MRI room. Afterwards she said that at other hospitals they had to "knock me out" prior to MRI. notified of pt. refusal.
[2017-08-19] MEDS: Vancomycin 125 mg Oral Capsule PO SCH (20:09)
[2017-08-19] MEDS: Insulin GLARgine 100 Unit/mL Syringe SUBQ SCH (21:58)
[2017-08-19 22:17] VITALS: BP 134/56; PULSE 88; RESP 18; O2SAT 99
[2017-08-20] MEDS: Vancomycin Inj 1,000 MG in IV Premix 1 EACH IV SCH ×2 (04:28→16:42)
--- NOTE | 2017-08-20 05:17 | NUR ---
Activity Pt remained in bed all shift, refused to change positions. Lying supine with HOB 30-45 degrees due to her c/o SOB. 1L o2 via NC per Pt request and comfort, sat 95%. Muse cath patent to gravity. Dressing intact, nystatin applied to all folds and glutes as directed. Pt rec'd routine pain meds and had 0 c/o breakthrough pain. Able to sleep through night. Tolerating ABO's with no c/o NV. at bedside, Call light i reach, Care continues
[2017-08-20 05:29] VITALS: BP 120/71; PULSE 85; RESP 20; O2SAT 99
[2017-08-20] MEDS: 0.9% Sodium Chloride 1,000 ML IV SCH ×2 (06:15→17:37)
[2017-08-20 06:39] LABS: INR 1.55 ratio
[2017-08-20] MEDS: Meropenem Inj 1,000 MG in 0.9% Sodium Chloride 100 ML IV SCH ×3 (06:41→21:57)
[2017-08-20] MEDS: Vancomycin Dose per Pharmacist XX SCH (08:30)
[2017-08-20 08:55] VITALS: BP 126/70; PULSE 92; RESP 18
--- NOTE | 2017-08-20 09:14 | PCM.PHAPRO ---
Progress RLE Cellulitis/Ulcer WARFARIN DAILY DOSING INDICATION: DVT TREATMENT INR GOAL: 2-3 HOME DOSE: 6MG DAILY TODAY'S INR 1.55 TODAY'S DOSE: 6MG ALSO ON ENOXAPARIN 100MG Q 12H WHILE WARFARIN IS SUBTHERAPEUTIC TODAY'S SCr 0.68 Date Aug 20-Jul INR 1.2 1.55 INR change 0.35 Warf Dose 6MG 6MG Hayley Douglas Pharm.D Aug 20, 2017 09:14
[2017-08-20] MEDS: Insulin LISPRO 300 Unit/3 mL Inj SUBQ SCH ×5 (09:37→21:58)
[2017-08-20] MEDS: Fluticasone 100 mCg Inhaler INHALATION SCH ×2 (09:38→21:49)
[2017-08-20] MEDS: Vancomycin 125 mg Oral Capsule PO SCH ×2 (09:38→21:49)
[2017-08-20] MEDS: Potassium Chloride 20 mEq SR Tablet PO SCH (09:38)
[2017-08-20] MEDS: Morphine ER 30 mg (MS Contin) Tablet PO SCH ×2 (09:40→21:49)
[2017-08-20 09:41] VITALS: BP 124/44; PULSE 97
[2017-08-20] MEDS: MeTOProlol XL 25 mg ER24 Tablet PO SCH (09:43)
--- NOTE | 2017-08-20 10:15 | NUR ---
Inpatient Wound Nurse Patient seen in follow up for multiple wounds. R 5th met head wound bed beefy red and granular. Small amount of drainage noted on removed Mepilex. Patient complained of pain with minor wound care. Wound was blotted with NS-soaked gauze, blotted dry, then covered with bordered 4x4 Mepliex with silicone facing. C-shaped moleskin was left in place under Mepilex. R lateral leg, 5 cm L x 4 cm W, deroofed bulla, beefy red and moist wound bed, peely edges, periwound erythema and tenderness. R anterior leg, 7 cm x 5 cm, drained bulla, no specific wound bed visualized until wound deroofs. Edges intermittently adhered, erythema and tenderness or periwound noted. Both of these wounds were blotted with NS-soaked gauze, then blotted dry and covered with one large bordered sacral Mepilex with silicone facing. This dressing is highly absorbent and should be more comfortable to patient as it moves with her motions and removal is much more atraumatic to periwound tissue. Staff nurse may change PRN. Perineum, panniculus and groin are slightly improved, a bit less erythemic and appear drier tender with 24 hrs of Nystatin ointment. This areas was cleansed and dried well with clean gauze. A blue paper chucks (no plastic backing) was placed under panniculus. Thigh folds were covered with Mepilex sheet foam which should wick off sweat and contribute to drying these deep skin folds. Stage 3 pressure injury to L butt cheek where skin folds into upper posterior thigh, much less macerated; ruffling edges has improved, as has intergluteal fold. These wounds bleed easily. They were cleansed, blotted dry, then entire area coated with Nystatin ointment. A piece of Mepilex sheet foam was placed over these wounds. No dressing will adhere while Nystatin ointment is used and Nystatin ointment is priority at this time, since pressure injuries are not likely to heal in presence of such chronic and stubborn yeast. Once skin is improved, anticipate hydrocolloid dressings over pressure injuries. Patient was instructed to choose fewer starches and sugar and decrease this primary energy source to fungus. She was encouraged to accept a maintenance program for her skin health that includes hygiene and, most likely, Nystatin ointment. Patient did not acknowledge this information when it was provided and gave no indication of compliance. She may be more receptive to instruction closer to discharge. CWON will see patient again on Wednesday.
--- NOTE | 2017-08-20 11:26 | NUR ---
Social Work: Initial Assessment/Multi-Disciplinary Rounds D: EMR reviewed. Please see Initial Assessment linked to this note for more information. Pt is a 67 y/o female [place] - readmit risk score of 2 - for osteomyelitis of right foot/diabetes per H&P. Pt's insurance is Medicare [facility] Supplemental. Pt does not have PCP - SW received MD orders to schedule PCP follow-up. SW to schedule PCP follow-up and provide pt with appointment card. SW met with pt and spouse at bedside to conduct initial assessment. Pt was alert and oriented x3. SW explained role and wrote phone number on white board. SW provided [facility] Discharge Planning Checklist and encouraged pt to contact SW for any discharge planning questions. Pt discussed in multidisciplinary rounds. Pt is not medically stable for discharge at this time, anticipate 2-3 more days pending podiatry and ID. No SW needs at this time, SW orders received from MD to coordinate PCP. SW will continue to follow. Pt lives in a single-story home with wheelchair ramp access in [place] with her spouse Simone Hartman [phone]. Pt gave consent to contact spouse or for discharge planning. Pt uses an electric wheelchair in the community and a cane at home for ambulation. Pt also owns a walker. Pt does not drive. Pt states her spouse provides transport and she has ample support at home. Pt has hx at [facility] and is open with [facility] for RN 3x/week. SW to request resumption HH orders from and then provide access to [facility]. Pt willing to continue services with [facility] at this time. SW provided DPOA/advanced directive ppw and encouraged to return a copy to the hospital once complete. Pt agreeable. A: Pt who uses an electric scooter outside of the home and a cane for ambulation at home at baseline. Pt who is otherwise independent with ADLs. P: Pt anticipated to discharge home with spouse via POV when medically stable. SW to schedule PCP appointment and provide pt with appt card. SW to request resumption orders for [facility] RN 3x/week - if MD agreeable, SW to provide access to [facility]. No other SW needs at this time, SW will continue to follow. ARMAND Potter Addendum: 08/20/17 at 1708 by AUDELIA DOWNEY Amended: Links added.
--- NOTE | 2017-08-20 11:38 | NUR ---
Pain/Nausea Patient reported 10/10 pain located on her sides and nausea. 5mg Oxycodone and 4 mg ondansetron given. Patient able to reposition slightly, Q2 turn if patient allows. Call light and tray table within reach. Will continue to monitor patient hourly.
[2017-08-20] MEDS: Morphine ER 15 mg (MS Contin) Tablet PO SCH (12:19)
[2017-08-20 13:17] VITALS: BP 118/73; PULSE 93; RESP 18; O2SAT 100
--- NOTE | 2017-08-20 13:23 | PCM.PNMED ---
Subjective Date of Service Aug 20, 2017 Subjective Patient is in bed, complaining of left foot pain, pains and aches everywhere. Patient has history of chronic pain, she is on oral opioids at home for pain control. Patient was not able to do MRI secondary to anxiety/claustrophobia. I discuss it with her and offered IV Ativan prior to the MRI. Patient does not believe that Ativan is going to help her. She told me she needs to be completely sedated for MRI. Exam Vital Signs Vital Sign - Last Date Time Temp Pulse Resp B/P Pulse Ox O2 Delivery O2 Flow Rate FiO2 08/20/17 09:47 Supplement Oxygen 08/20/17 09:41 97 124/44 08/20/17 08:55 36.9 18 2.00 08/20/17 05:29 99 Intake and Output 08/19/17 08/19/17 08/20/17 Cumulative From/Thru 14:59 22:59 06:59 08/18/17 22:35 - 08/20/17 06:42 Intake Total 1703 ml 765 ml 2811 ml Output Total 2500 ml 550 ml 3250 ml Balance -797 ml 215 ml -439 ml Intake Oral 1120 ml 200 ml 1320 ml IV Total 583 ml 565 ml 1491 ml Output Urine Total 2500 ml 550 ml 3250 ml # Bowel Movements 0 1 Exam GENERAL: Alert, not in distress, cooperative HEAD: atraumatic, normocephalic, no bruises. EYES: MILY, EOMI, anicteric, able to fully open and close eyelids SKIN: Skin color normal, turgor normal. Edema and erythema over the L lower leg. Left lower leg wound is under dressing EAR, NOSE, MOUTH, THROAT: Lips, oral mucosa, tongue gums, oropharynx are moist , pink, no lesions. Ears normal appearance, no lesions. NECK: no jugulovenous distention; supple ROM normal. RESPIRATORY: Lungs clear to auscultation. Good diaphragmatic excursion. CARDIAC: normal S1 and S2; no rubs, murmurs, or gallops; regular rate and rhythm ABDOMEN: Abdomen soft, non-tender. BS normal. No masses or organomegaly. MUSCULOSKELETAL: ROM full, muscles are not tender EXTREMITIES: no pitting edema in LE, no new deformities NEURO: Alert, oriented X 3, Sensation grossly intact., Cranial nerves II-XII intact, Grossly normal motor function. PULSES: 2+ radial, 2+ carotid REVIEW OF SYSTEMS: GENERAL: no malaise, no fevers., SEE HPI HEENT: Negative for frequent or significant headaches All other reviewed and negative other than HPI. IVs and Medications Medications Reviewed: Medications were reviewed in detail Lab and Diagnostics Result Diagram: 08/19/17 0033 08/20/17 0535 Microbiology Blood Cultures Pending X-Rays, CTs and MRIs Official XR Right foot read pending Official CXR read pending 12-lead ECG Sinus rhythm HR 98 Assessment & Plan Patient is a 67 y/o Female with past medical history of DMT2, CHF, DVTs on Warfarin, and recurrent abscesses with two weeks of lower extremity swelling and erythema. She has recently completed a 7 day antibiotic regimen 2 days ago of Augmentin and Cipro. Last abx dose was 2 days ago. She presented with right lower extremity erythema, edema and pain in the right foot. Patient also has multiple ulcers on her buttocks. Acute Right Foot Diabetic Ulcer, new 0.5x0.5" ulcer to lateral aspect of R 5th metatarsal Osteomyelitis. Acute Cellulitis to Right Lower Extremity - Stable, not under control - Elevated ESR and radiologic findings suggestive of osteomyelitis - Podiatry and infectious disease has been consulted, help appreciated - Patient was not able to have MRI secondary to anxiety and claustrophobia Plan - IV Vancomycin/meropenem Chronic pain -Continue with home medications Microcytic Anemia - Stable, probably anemia of chronic disease and iron deficiency anemia Chronic Congestive Heart Failure, type unknown - Stable - Continue current meds Type 2 Diabetes Mellitus - Stable - Continue insulin sliding scale History of lower extremity DVT - Patient is on Coumadin - I discussed with the patient the risks of anticoagulation - risk of severe bleeding, intracranial bleeding, subsequent disability or even as a result of bleeding while on ACT; patient is willing to accept the risks and continue with ACT. - Monitor INR daily, adjust Coumadin as needed. Lovenox twice a day until INR is above 2. DVT PROPHYLAXIS: Lovenox/Coumadin Code status: Patient would like to be full code Disposition: discharge in 2-3 days after patient improves. Plan of care discussed with patient, treatment team; Labs, radiology tests reviewed. Plan of care, available alternatives were discussed and reviewed with patient. All questions answered. Patient verbalized understanding, approved and agreed to plan of care. GI Prophylaxis: Proton Pump Inhibitor VTE Prophylaxis: Theraputic Anticoag with Warfarin VTE Mechanical Devices: Intermittant Pneumatic CD Resuscitation Status: CPR: Attempt Resuscitation Armando Potts MD Aug 20, 2017 13:23
[2017-08-20] MEDS ORDERED: Vancomycin Serum Trough XX ONE (15:30)
--- NOTE | 2017-08-20 15:43 | NUR ---
Evaluation completed. Please go to "Notes" then click on "Assessments and Notes" (bottom left corner of screen). Then select appropriate discipline tab on top of screen.
[2017-08-20 21:30] VITALS: BP 154/62; PULSE 99; RESP 22; O2SAT 93
[2017-08-20] MEDS: Insulin GLARgine 100 Unit/mL Syringe SUBQ SCH (21:57)
[2017-08-21] MEDS ORDERED: Vancomycin Serum Trough XX ONE (03:30)
[2017-08-21] MEDS: Vancomycin Inj 1,000 MG in IV Premix 1 EACH IV SCH ×2 (04:26→18:42)
[2017-08-21 04:34] LABS: INR 1.93 ratio
--- NOTE | 2017-08-21 05:15 | NUR ---
WOUND CARE NYSTATIN APPLIED TO ALL GLUTES AND VAGINAL AREA. CLEANED PANNUS AND THIGHS, APPLIED NYSTATIN AND CHANGED MEPILEX FOAM, PLACED A CLEAN KALLIE PAD UNDER PANNUS. PT STATES HER PAIN IS 9/10. NOTED PT TO BE HAVING SOME ARM AND LEG TREMORS, PT STATES IT HAS HAPPENED BEFORE AND SHE DOES NOT KNOW WHY. WILL PASS ON TO AM NURSE TO SPEAK WITH MD. CALL LIGHT IN REACH, AT BEDSIDE, CARE CONTINUES
[2017-08-21 05:50] VITALS: BP 109/53; PULSE 105; RESP 22; O2SAT 97
[2017-08-21] MEDS: Meropenem Inj 1,000 MG in 0.9% Sodium Chloride 100 ML IV SCH ×3 (06:06→21:39)
--- NOTE | 2017-08-21 06:28 | PCM.PHAPRO ---
Progress Date of Service: Aug 21, 2017 Vancomycin dosing by pharmacy for 67 y/o diabetic woman with lower extremity ulcer/cellulitis A: * The patient has been receiving vancomycin 1000 mg IV every 12 hours * Trough level this morning of 15.2 mcg/mL is within target range of 15 - 20 mcg /mL * SCr yesterday was 0.68 mg/dL * MRSA PCR is negative, cultures are pending P: * Continue the current vancomycin dosing * Pharmacy to order another trough level if the patient remains on vancomycin therapy Thank you. Pharmacy will continue to follow this patient. Marie Garces Aug 21, 2017 06:27
[2017-08-21] MEDS: Vancomycin Dose per Pharmacist XX SCH (08:30)
[2017-08-21] MEDS: Insulin LISPRO 300 Unit/3 mL Inj SUBQ SCH ×7 (08:31→21:52)
[2017-08-21] MEDS: 0.9% Sodium Chloride 1,000 ML IV SCH (10:40)
--- NOTE | 2017-08-21 10:42 | PCM.PNMED ---
Subjective Date of Service Aug 21, 2017 Subjective Patient feels better today. Complaining of pains and aches everywhere. Patient was not able to have MRI secondary to anxiety/claustrophobia. I discuss it with her and offered IV Ativan prior to the MRI. Patient does not believe that Ativan is going to help her. She told me she needs to be completely sedated which is not possible as MRI lab is not equipped for anesthesia/monitoring. Exam Vital Signs Vital Sign - Last Date Time Temp Pulse Resp B/P Pulse Ox O2 Delivery O2 Flow Rate FiO2 08/21/17 05:50 37.0 105 22 109/53 97 Nasal Cannula 1.00 Intake and Output 08/20/17 08/20/17 08/21/17 Cumulative From/Thru 15:00 23:00 07:00 08/18/17 22:35 - 08/21/17 06:34 Intake Total 2274 ml 1210 ml 6295 ml Output Total 2300 ml 5550 ml Balance -26 ml 1210 ml 745 ml Intake Oral 857 ml 2177 ml IV Total 1417 ml 1210 ml 4118 ml Output Urine Total 2300 ml 5550 ml # Bowel Movements 1 2 Exam GENERAL: Alert, not in distress HEAD: atraumatic, normocephalic EYES: EOMI, anicteric, able to fully open and close eyelids SKIN: Skin color normal, turgor normal. Edema and erythema over the L lower leg. Left lower leg wound is under dressing EAR, NOSE, MOUTH, THROAT: Lips, oral mucosa, tongue are moist, pink, no lesions. NECK: no jugulovenous distention; supple ROM normal. RESPIRATORY: Lungs clear to auscultation. Good diaphragmatic excursion. CARDIAC: normal S1 and S2; no rubs, murmurs, or gallops; regular rhythm ABDOMEN: Abdomen soft, non-tender. BS normal. MUSCULOSKELETAL: ROM full, muscles are not tender EXTREMITIES: no pitting edema in LE, no new deformities NEURO: Alert, oriented X 3, Cranial nerves II-XII intact, Grossly normal motor function. PULSES: 2+ radial, 2+ carotid REVIEW OF SYSTEMS: GENERAL: no malaise, no fevers., SEE HPI HEENT: Negative for frequent or significant headaches All other reviewed and negative other than HPI. IVs and Medications Medications Reviewed: Medications were reviewed in detail Lab and Diagnostics Result Diagram: 08/19/17 0033 08/20/17 0535 Microbiology Blood Cultures Pending X-Rays, CTs and MRIs Official XR Right foot read pending Official CXR read pending 12-lead ECG Sinus rhythm HR 98 Assessment & Plan Patient is a 67 y/o Female with past medical history of DMT2, CHF, DVTs on Warfarin, and recurrent abscesses with two weeks of lower extremity swelling and erythema. She has recently completed a 7 day antibiotic regimen 2 days ago of Augmentin and Cipro. Last abx dose was 2 days ago. She presented with right lower extremity erythema, edema and pain in the right foot. Patient also has multiple ulcers on her buttocks. Acute Right Foot Diabetic Ulcer, new 0.5x0.5" ulcer to lateral aspect of R 5th metatarsal. ? Osteomyelitis. Acute Cellulitis of the Right Lower Extremity - improving - Elevated ESR and radiologic findings suggestive of osteomyelitis - Podiatry and infectious disease have been consulted, help appreciated - Patient was not able to have MRI secondary to anxiety and claustrophobia Plan - c/w IV Vancomycin/meropenem Chronic pain -Continue with home medications Microcytic Anemia - Stable, probably anemia of chronic disease and iron deficiency anemia - check CBC today Chronic Congestive Heart Failure, type unknown - Stable - Continue current meds Type 2 Diabetes Mellitus - Stable - Continue insulin sliding scale History of lower extremity DVT - Patient is on Coumadin - I discussed with the patient the risks of anticoagulation - risk of severe bleeding, intracranial bleeding, subsequent disability or even as a result of bleeding while on ACT; patient is willing to accept the risks and continue with ACT. - Monitor INR daily, adjust Coumadin as needed. Lovenox twice a day until INR is above 2. DVT PROPHYLAXIS: Lovenox/Coumadin Code status: Patient would like to be full code Disposition: discharge in 2-3 days after patient improves. Plan of care discussed with patient, treatment team; Labs, radiology tests reviewed. Plan of care, available alternatives were discussed and reviewed with patient. All questions answered. Patient verbalized understanding, approved and agreed to plan of care. GI Prophylaxis: Proton Pump Inhibitor VTE Prophylaxis: Theraputic Anticoag with Warfarin VTE Mechanical Devices: Intermittant Pneumatic CD Resuscitation Status: CPR: Attempt Resuscitation Armando Potts MD Aug 21, 2017 10:42
[2017-08-21] MEDS: Morphine ER 30 mg (MS Contin) Tablet PO SCH ×2 (11:03→20:33)
[2017-08-21 11:20] LABS: Mean Corpuscular Hemoglobin 23.3 pg (27.0-35.0); Mean Corpuscular Volume 78.7 fL (81-100)
[2017-08-21] MEDS: MeTOProlol XL 25 mg ER24 Tablet PO SCH (11:27)
[2017-08-21 13:10] VITALS: BP 123/81; PULSE 108; O2SAT 99
[2017-08-21] MEDS: Morphine ER 15 mg (MS Contin) Tablet PO SCH (14:36)
[2017-08-21] MEDS: Vancomycin 125 mg Oral Capsule PO SCH ×2 (14:41→20:34)
[2017-08-21] MEDS: Potassium Chloride 20 mEq SR Tablet PO SCH (14:42)
[2017-08-21] MEDS: Fluticasone 100 mCg Inhaler INHALATION SCH ×2 (14:52→20:35)
[2017-08-21 17:15] VITALS: BP 129/78; PULSE 98; O2SAT 98
--- NOTE | 2017-08-21 19:38 | NUR ---
PAIN/SKIN/CHOKING Patient with pain to left lower extremity and sacral area but does not tolerate side laying , patient sob with any exertion.. Patient had choking episode on water this am ,face turned bright reddish/purplish hue briefly while trying to catch her breath. 02 applied and patient helped to bolt upright position. Patient with no further choking spells this afternoon. Patient in and out of drowsiness at times stated didn't sleep well last night. Patient with multiple skin issues documented by wound care nurse.
[2017-08-21 20:00] VITALS: BP 107/71; PULSE 94; O2SAT 100
[2017-08-21] MEDS: Insulin GLARgine 100 Unit/mL Syringe SUBQ SCH (21:52)
[2017-08-22] MEDS: 0.9% Sodium Chloride 1,000 ML IV SCH ×2 (04:03→11:35)
[2017-08-22] MEDS: Meropenem Inj 1,000 MG in 0.9% Sodium Chloride 100 ML IV SCH ×3 (04:50→21:26)
--- NOTE | 2017-08-22 05:49 | NUR ---
Pain/ BM/ Turns Pt. reported pain. Roxycodone 1 tab given and effective for pain. Pt. refuses to be turned on a regular basis. Pt. had an incontinent formed BM during shift. Will continue to monitor.
[2017-08-22] MEDS: Vancomycin Inj 1,000 MG in IV Premix 1 EACH IV SCH ×2 (05:55→16:41)
[2017-08-22 06:06] LABS: INR 2.14 ratio
[2017-08-22 06:10] VITALS: BP 115/53; PULSE 78; RESP 18; O2SAT 99
[2017-08-22] MEDS: Insulin LISPRO 300 Unit/3 mL Inj SUBQ SCH ×7 (07:48→22:57)
[2017-08-22] MEDS: Vancomycin Dose per Pharmacist XX SCH (08:30)
[2017-08-22] MEDS: Morphine ER 30 mg (MS Contin) Tablet PO SCH ×2 (08:58→21:30)
[2017-08-22] MEDS: Fluticasone 100 mCg Inhaler INHALATION SCH ×2 (08:58→21:27)
[2017-08-22] MEDS: Potassium Chloride 20 mEq SR Tablet PO SCH (09:00)
[2017-08-22] MEDS: Vancomycin 125 mg Oral Capsule PO SCH ×2 (09:02→21:27)
[2017-08-22] MEDS: MeTOProlol XL 25 mg ER24 Tablet PO SCH (09:04)
[2017-08-22 09:15] VITALS: PULSE 76
[2017-08-22 09:36] VITALS: BP 129/73; PULSE 79; RESP 18; O2SAT 99
[2017-08-22] MEDS: Morphine ER 15 mg (MS Contin) Tablet PO SCH (12:11)
--- NOTE | 2017-08-22 13:46 | PCM.PNMED ---
Subjective Date of Service Aug 22, 2017 Subjective Patient is in bed, complaining of generalized weakness, pains and aches all over , pain with lower extremity. Exam Vital Signs Vital Sign - Last Date Time Temp Pulse Resp B/P Pulse Ox O2 Delivery O2 Flow Rate FiO2 08/22/17 09:36 36.7 79 18 129/73 99 Nasal Cannula 2.00 Intake and Output 08/21/17 08/21/17 08/22/17 Cumulative From/Thru 15:00 23:00 07:00 08/18/17 22:35 - 08/22/17 06:10 Intake Total 1200 ml 636 ml 1611 ml 9742 ml Output Total 500 ml 2750 ml 8800 ml Balance 700 ml 636 ml -1139 ml 942 ml Intake Oral 1200 ml 636 ml 873 ml 4886 ml IV Total 738 ml 4856 ml Output Urine Total 500 ml 2750 ml 8800 ml # Voids 4 4 # Bowel Movements 0 1 1 4 Exam GENERAL: Alert, not in distress HEAD: atraumatic, normocephalic EYES: EOMI, anicteric SKIN: Skin color normal. Edema and erythema over the L lower leg improving. Left lower leg wound is under dressing EAR, NOSE, MOUTH, THROAT: Lips, oral mucosa, tongue are moist, pink, no lesions. NECK: no jugulovenous distention; supple ROM normal. RESPIRATORY: Lungs clear to auscultation. Good diaphragmatic excursion. CARDIAC: normal S1 and S2; no rubs or gallops; regular rhythm ABDOMEN: Abdomen soft, non-tender. BS normal. MUSCULOSKELETAL: ROM full, muscles are not tender EXTREMITIES: no pitting edema in LE, no new deformities NEURO: Alert, oriented X 3, Cranial nerves II-XII intact, Grossly normal motor function. PULSES: 2+ radial, 2+ carotid REVIEW OF SYSTEMS: GENERAL: no malaise, no fevers., SEE HPI HEENT: Negative for frequent or significant headaches All other reviewed and negative other than HPI. IVs and Medications Medications Reviewed: Medications were reviewed in detail Lab and Diagnostics Result Diagram: 08/21/17 1115 08/22/17 0535 Microbiology Blood Cultures Pending X-Rays, CTs and MRIs Official XR Right foot read pending Official CXR read pending 12-lead ECG Sinus rhythm HR 98 Assessment & Plan Patient is a 67 y/o Female with past medical history of DMT2, CHF, DVTs on Warfarin, and recurrent abscesses with two weeks of lower extremity swelling and erythema. She has recently completed a 7 day antibiotic regimen 2 days ago of Augmentin and Cipro. Last abx dose was 2 days ago. She presented with right lower extremity erythema, edema and pain in the right foot. Patient also has multiple ulcers on her buttocks. Acute Right Foot Diabetic Ulcer, new 0.5x0.5" ulcer to lateral aspect of R 5th metatarsal. ? Osteomyelitis. Acute Cellulitis of the Right Lower Extremity - improving - Elevated ESR and radiologic findings suggestive of osteomyelitis - Podiatry and infectious disease have been consulted, help appreciated - Patient was not able to have MRI secondary to anxiety and claustrophobia Plan - c/w IV Vancomycin/meropenem - PT/OT - placement Chronic pain -Continue with home medications Microcytic Anemia - Stable, probably anemia of chronic disease and iron deficiency anemia - check CBC today Chronic Congestive Heart Failure, type unknown - Stable - Continue current meds Type 2 Diabetes Mellitus - Stable - Continue insulin sliding scale History of lower extremity DVT - Patient is on Coumadin - I discussed with the patient the risks of anticoagulation - risk of severe bleeding, intracranial bleeding, subsequent disability or even as a result of bleeding while on ACT; patient is willing to accept the risks and continue with ACT. - Monitor INR daily, adjust Coumadin as needed. Lovenox twice a day until INR is above 2. DVT PROPHYLAXIS: Lovenox/Coumadin Code status: Patient would like to be full code Disposition: discharge in 2-3 days after patient improves. Plan of care discussed with patient, treatment team; Labs, radiology tests reviewed. Plan of care, available alternatives were discussed and reviewed with patient. All questions answered. Patient verbalized understanding, approved and agreed to plan of care. GI Prophylaxis: Proton Pump Inhibitor VTE Prophylaxis: Theraputic Anticoag with Warfarin VTE Mechanical Devices: Intermittant Pneumatic CD Resuscitation Status: CPR: Attempt Resuscitation Armando Potts MD Aug 22, 2017 13:46
[2017-08-22 16:40] VITALS: BP 125/72; PULSE 104; RESP 18; O2SAT 98
--- NOTE | 2017-08-22 17:02 | NUR ---
Pain / mobility Pt consistently reports her pain as 10/10 and even a "12." Pt receives scheduled MS contin and extended release MS. Also administered 5 mg oxycodone PRN. Pt reports pain in multiple places: right foot, buttocks, back. Advised pt that she needs to move off of her back, but she refuses to be turned. She states that it makes her sides hurt. Pt is able to get up to [facility] using the [facility]WW and 2 people to assist. Pt fears falling, stating that her legs sometimes "give out" and buckle underneath her. Pt uses call light appropriately to ask for help getting OOB. Care continues.
[2017-08-22 19:16] VITALS: BP 117/53; PULSE 102
--- NOTE | 2017-08-22 22:10 | NUR ---
CARE TRANSFERED; to ne at 2200.
[2017-08-22] MEDS: Insulin GLARgine 100 Unit/mL Syringe SUBQ SCH (22:57)
[2017-08-23] MEDS: 0.9% Sodium Chloride 1,000 ML IV SCH ×2 (00:55→14:15)
[2017-08-23] MEDS: Vancomycin Inj 1,000 MG in IV Premix 1 EACH IV SCH ×2 (03:22→16:00)
--- NOTE | 2017-08-23 04:23 | NUR ---
PSYCH; slept most of the night. No c/o voiced.
[2017-08-23] MEDS: Meropenem Inj 1,000 MG in 0.9% Sodium Chloride 100 ML IV SCH ×3 (04:47→21:00)
[2017-08-23 05:39] VITALS: BP 131/65; PULSE 76; RESP 18; O2SAT 100
[2017-08-23 06:00] LABS: INR 2.35 ratio
[2017-08-23] MEDS: Insulin LISPRO 300 Unit/3 mL Inj SUBQ SCH ×7 (07:30→21:30)
[2017-08-23] MEDS: Vancomycin Dose per Pharmacist XX SCH (08:30)
[2017-08-23 09:04] VITALS: BP 115/68; PULSE 81; RESP 18; O2SAT 100
[2017-08-23] MEDS: Morphine ER 30 mg (MS Contin) Tablet PO SCH ×2 (10:49→21:06)
[2017-08-23] MEDS: MeTOProlol XL 25 mg ER24 Tablet PO SCH (10:50)
[2017-08-23] MEDS: Potassium Chloride 20 mEq SR Tablet PO SCH (10:50)
[2017-08-23] MEDS: Fluticasone 100 mCg Inhaler INHALATION SCH ×2 (10:50→21:04)
[2017-08-23] MEDS: Vancomycin 125 mg Oral Capsule PO SCH ×2 (11:05→21:08)
--- NOTE | 2017-08-23 12:22 | NUR ---
Inpatient Wound Nurse Patient seen in follow up for multiple wounds. R 5th met head wound bed beefy red and granular. Periwound maceration is moderate though very small amount of serosanguinous drainage noted on removed Mepilex. Patient complained of pain with minor wound care. Wound was blotted with NS-soaked gauze, blotted dry, then covered with bordered 4x4 Mepliex with silicone facing. C-shaped moleskin was left in place under Mepilex. Dressing on RLE noted with tint of blue-green drainage but no odor. R lateral leg, deroofed bulla with no dimensional changes, beefy red and moist wound bed, soft edges, periwound erythema and tenderness. R anterior leg, drained bulla, wound bed beefy red in places were skin has pulled away. Edges intermittently adhered, erythema and tenderness or periwound noted. Both of these wounds were blotted with NS-soaked gauze, then blotted dry and covered with one large bordered sacral Mepilex with silicone facing. This dressing has been less than 25% saturated. Staff nurse may change PRN. Perineum, panniculus and groin continue improved, less erythema and odor. Stage 3 pressure injury to L butt cheek where skin folds into upper posterior thigh also continues improved, as has intergluteal fold. Much less bleeding and maceration. Wounds were cleansed, blotted dry, then entire area coated with Nystatin ointment. No dressing will adhere while Nystatin ointment is used and Nystatin ointment is priority at this time, since pressure injuries are not likely to heal in presence of such chronic and stubborn yeast. Anticipate hydrocolloid application tomorrow if yeast and moisture continue improved. Patient stated that she thinks her BGs have improved and she is eating less sweets. She stated that she likes her home health crew and feels comfortable that they will help her make good choices related to diabetes. CWON will see patient again tomorrow.
--- NOTE | 2017-08-23 13:11 | PCM.PNMED ---
Subjective Date of Service Aug 23, 2017 Subjective She is in the bed, feels better. Exam Vital Signs Vital Sign - Last Date Time Temp Pulse Resp B/P Pulse Ox O2 Delivery O2 Flow Rate FiO2 08/23/17 09:04 36.6 81 18 115/68 100 Room Air 08/22/17 16:40 2.00 Intake and Output 08/22/17 08/22/17 08/23/17 Cumulative From/Thru 15:00 23:00 07:00 08/18/17 22:35 - 08/23/17 05:41 Intake Total 190 ml 580 ml 1010 ml 43143 ml Output Total 1150 ml 9950 ml Balance 190 ml 580 ml -140 ml 1572 ml Intake Oral 200 ml 5086 ml IV Total 190 ml 580 ml 810 ml 6436 ml Output Urine Total 1150 ml 9950 ml # Voids 4 # Bowel Movements 0 4 Exam GENERAL: Alert, not in distress, obese, weak HEAD: atraumatic, normocephalic EYES: EOMI, anicteric SKIN: Skin color normal. Edema and erythema over the L lower leg improving. Left lower leg wound is under dressing EAR, NOSE, MOUTH, THROAT: Lips, oral mucosa, tongue are moist, pink, no lesions. NECK: no jugulovenous distention; supple ROM normal. RESPIRATORY: Lungs clear to auscultation. Good diaphragmatic excursion. CARDIAC: normal S1 and S2; regular rhythm ABDOMEN: Abdomen soft, non-tender. BS normal. MUSCULOSKELETAL: ROM full, muscles are not tender EXTREMITIES: no pitting edema in LE, no new deformities NEURO: Alert, oriented X 3, Cranial nerves II-XII intact, Grossly normal motor function. PULSES: 2+ radial, 2+ carotid REVIEW OF SYSTEMS: GENERAL: no malaise, no fevers., SEE HPI HEENT: Negative for frequent or significant headaches All other reviewed and negative other than HPI. IVs and Medications Medications Reviewed: Medications were reviewed in detail Lab and Diagnostics Result Diagram: 08/21/17 1115 08/22/17 0535 Microbiology Blood Cultures Pending X-Rays, CTs and MRIs Official XR Right foot read pending Official CXR read pending 12-lead ECG Sinus rhythm HR 98 Assessment & Plan Patient is a 67 y/o Female with past medical history of DMT2, CHF, DVTs on Warfarin, and recurrent abscesses with two weeks of lower extremity swelling and erythema. She has recently completed a 7 day antibiotic regimen 2 days ago of Augmentin and Cipro. Last abx dose was 2 days ago. She presented with right lower extremity erythema, edema and pain in the right foot. Patient also has multiple ulcers on her buttocks. Acute Right Foot Diabetic Ulcer, new 0.5x0.5" ulcer to lateral aspect of R 5th metatarsal. ? Osteomyelitis. Acute Cellulitis of the Right Lower Extremity - improving - Elevated ESR and radiologic findings suggestive of osteomyelitis - Podiatry and infectious disease have been consulted, help appreciated - Patient was not able to have MRI secondary to anxiety and claustrophobia Plan - c/w IV Vancomycin/meropenem for now - PT/OT - placement Chronic pain - Stable -Continue with home medications Microcytic Anemia - Stable, probably anemia of chronic disease and iron deficiency anemia - check CBC today Chronic Congestive Heart Failure, type unknown - Stable - Continue current meds Type 2 Diabetes Mellitus - Stable - Continue current meds History of lower extremity DVT - Patient is on Coumadin - I discussed with the patient the risks of anticoagulation - risk of severe bleeding, intracranial bleeding, subsequent disability or even as a result of bleeding while on ACT; patient is willing to accept the risks and continue with ACT. - Monitor INR daily, adjust Coumadin as needed. Lovenox twice a day until INR is above 2. DVT PROPHYLAXIS: Lovenox/Coumadin Code status: Patient would like to be full code Disposition: discharge in 2-3 days after patient improves. Plan of care discussed with patient, treatment team; Labs, radiology tests reviewed. Plan of care, available alternatives were discussed and reviewed with patient. All questions answered. Patient verbalized understanding, approved and agreed to plan of care. GI Prophylaxis: Proton Pump Inhibitor VTE Prophylaxis: Theraputic Anticoag with Warfarin VTE Mechanical Devices: Intermittant Pneumatic CD Resuscitation Status: CPR: Attempt Resuscitation Armando Potts MD Aug 23, 2017 13:11
[2017-08-23] MEDS: Morphine ER 15 mg (MS Contin) Tablet PO SCH (13:35)
[2017-08-23] MEDS ORDERED: Vancomycin Serum Trough XX ONE (15:30)
--- NOTE | 2017-08-23 16:27 | PROG NOTE ---
[address] [address] PROGRESS NOTE PATIENT: GUSTAVO SIMPSON : 1950 MR#: [id number] ADMIT: 08/19/2017 JOB ID: [id number] DATE: 08/23/2017 REASON FOR FOLLOWUP: Right lower extremity infections with ulcer at the base of the right 5th toe, as well as cellulitis involving the right lower extremity above the ankle. INTERVAL HISTORY: In the three days since I originally had the opportunity to see this patient, she has improved considerably. Much of the bullous of fluid collection over the right lower extremity has been drained and a dressing has been applied. In addition, she has been seen by Podiatry and Wound Management. The overall sense is that she does not have osteomyelitis but simply two soft tissue infections occurring in the setting of diabetes. The patient tells us she has not had fevers, chills, or sweats. No significant pulmonary symptoms. Her main problem is that her knees start to buckle when she stands up because of severe orthostatic hypotension. She is also having about one loose bowel movement per day. PHYSICAL EXAMINATION: Reveals an afebrile woman. Temperature 36.6, pulse 81, respiratory rate 18, blood pressure 115/68. She is saturating well on room air and appears very comfortable. Lungs are clear. Abdomen soft and nontender. The right lower extremity has the large bullous lesion which has now been drained and there is an area of necrosis or dark discoloration which rims the borders of what had been the large bullous lesion. Within the bullous lesion itself, there is no significant evidence of infection. The lesion at the right lateral forefoot near the base of the 5th toe has been packed. It appears relatively benign. Podiatry notes suggest they see good beefy tissue at the right 5th toe base and little evidence of infection. LABORATORIES: Include white count 7700, creatinine 0.75. Procalcitonin negative. Urinalysis: Greater than 50 white cells. Streptozyme 72. Culture of the foot that we did at the base of the 5th toe on August 19 grew coag-negative staph and Corynebacterium striatum which are both likely contaminants. Urine culture from the same date, August 19 showed mixed augusto. Blood cultures done that date were negative. An aspirate of the bullous lesion over the right lower leg showed no polys, no organisms, and no growth. A MRSA screen was negative. No additional imaging is available. IMPRESSION: This patient has a resolving area of cellulitis with overlying bullae present in the right lower extremity above the knee. We have negative cultures from the bullous lesion. Recall that this developed shortly after she completed a long course of Augmentin and Cipro and is now culture negative. Whether this is infectious at all remains unclear, but she seems to be improving with our combination of vancomycin and meropenem. Also notable is the lesion at the base of the right 5th toe which does not appear to be osteomyelitis and which also seems to be improving. At this point, I see no evidence for osteo, nor is there any evidence for any methicillin-resistant Staphylococcus aureus organism which requires the vancomycin. RECOMMENDATIONS: 1. I would discontinue the vancomycin tonight after the last dose this afternoon. 2. I would continue the meropenem through about two more days to finish a week of therapy and then if the patient is stable, consider discharge. 3. ID will continue to follow with you.
[2017-08-23 16:41] VITALS: BP 119/50; PULSE 90; RESP 18; O2SAT 92
--- NOTE | 2017-08-23 17:40 | NUR ---
Social Work: Continued Discharge Planning/Multidisciplinary Rounds D: EMR reviewed. Pt is on day 4 of hospitalization. Pt discussed in multidisciplinary rounds and is not medically stable for discharge, anticipate 1-2 more days. PT recommending SNF via wheelchair van on 08/23. SW received MD order for SNF. SW to follow-up with pt regarding choice for SNF. SW discussed SNF possibility with pt during bedside rounding - pt agreeable to SNF. SW received order to coordinate PCP - SW to schedule PCP at [facility] - pt now agreeable per conversation during bedside rounding. No other discharge planning needs at this time, SW will continue to follow. A: Pt for whom a SNF is medically necessary. P: Pt agreeable to SNF - SW to choice pt for SNF. SW received MD order for PCP - pt agreeable. SW to schedule PCP at [facility]. SW will continue to follow for needs. ARMAND Potter
--- NOTE | 2017-08-23 18:55 | NUR ---
Pain/anxiety/skin Patient on scheduled MS Contin for chronic pain and oxycodone Po but dose was reduced and patient was upset and complained that pain management needed to be the same as home regimen. Patient spoke with who made adjustments to dose . Patient with poor skin integrity wound care nurse following. Patient with anxiety c/o chest discomfort after dinner vitals taken Bp 130/68 heart rate 98 and regular rhythm when auscultated . Pt tearful missing kids reassured she was improving discharge in near future .
[2017-08-23] MEDS: Insulin GLARgine 100 Unit/mL Syringe SUBQ SCH (21:13)
[2017-08-23 22:02] VITALS: BP 125/68; PULSE 89; RESP 20; O2SAT 100
[2017-08-24] MEDS: 0.9% Sodium Chloride 1,000 ML IV SCH ×2 (00:24→15:00)
--- NOTE | 2017-08-24 03:54 | NUR ---
Pain On initial assessment, patient states pain 10/10 on pain scale. Pain medication administered along with scheduled MS Contin. Patient states right leg and buttocks in most pain. Patient up to bsc with 2P full assist. Buttocks macerated with open sore on on left side of gluteal cleft. Nystatin cream applied to all open areas. VSS. Call light within reach. Care continues.
[2017-08-24 04:30] VITALS: BP 115/67; PULSE 83; RESP 18; O2SAT 98
[2017-08-24] MEDS: Meropenem Inj 1,000 MG in 0.9% Sodium Chloride 100 ML IV SCH ×3 (05:20→20:06)
[2017-08-24 06:51] LABS: INR 2.78 ratio
[2017-08-24] MEDS: Insulin LISPRO 300 Unit/3 mL Inj SUBQ SCH ×7 (07:30→20:29)
[2017-08-24 08:03] VITALS: BP 126/60; PULSE 79; RESP 16; O2SAT 93
[2017-08-24] MEDS: Morphine ER 30 mg (MS Contin) Tablet PO SCH ×2 (08:48→20:19)
[2017-08-24] MEDS: MeTOProlol XL 25 mg ER24 Tablet PO SCH (08:49)
[2017-08-24] MEDS: Potassium Chloride 20 mEq SR Tablet PO SCH (08:49)
[2017-08-24] MEDS: Fluticasone 100 mCg Inhaler INHALATION SCH ×2 (08:51→20:09)
[2017-08-24] MEDS: Vancomycin 125 mg Oral Capsule PO SCH ×2 (08:51→20:20)
--- NOTE | 2017-08-24 11:26 | NUR ---
[facility] Tablet provided to pt for SNF choice. Roxana Roy SENIOR ACCOUNTING SPECIALIST
[2017-08-24] MEDS: Morphine ER 15 mg (MS Contin) Tablet PO SCH (12:13)
[2017-08-24 12:49] VITALS: PULSE 103
[2017-08-24 13:08] VITALS: BP 105/65; PULSE 97; RESP 17; O2SAT 99
[2017-08-24 13:25] VITALS: BP 115/71; O2SAT 92
--- NOTE | 2017-08-24 14:08 | NUR ---
Inpatient Wound Nurse Patient seen in follow up for multiple wounds. R 5th met head wound bed beefy red and granular. Periwound maceration is improved and only very small amount of serosanguinous drainage noted on removed Mepilex. Patient continues to complain of pain with this very minor wound care. Wound was blotted with NS-soaked gauze, blotted dry, then covered with bordered 4x4 Mepliex with silicone facing. C-shaped moleskin was left in place under Mepilex. Dressing on RLE noted without tint of blue-green drainage today and no odor. R lateral leg, deroofed bulla beefy red and granulating today with decreased drainage. Edges are distinct and well adhered, periwound erythema and tenderness seem improved. R anterior leg, drained bulla, loose skin is beginning to separate, anticipate it will pull off easily in next day or two. Edges are soft, wound bed much darker and beefier red today. Edges intermittently adhered, erythema and tenderness seem improved. Both of these wounds were blotted with NS-soaked gauze, then blotted dry and covered with one large bordered sacral Mepilex with silicone facing. This dressing continues less than 25% saturated. Staff nurse may change PRN. Yeast infestation of perineum, panniculus and groin continue to improve and appear less erythemic. CWON RN covered Stage 3 pressure injury to L butt cheek with hydrocolloid. Patient stated that she is feeling positively about making healthy changes that will improve her overall health, eager to get to SNF and rehab. CWON will see patient again tomorrow.
--- NOTE | 2017-08-24 14:08 | PCM.PNMED ---
Subjective Date of Service Aug 24, 2017 Subjective Patient is in the bed, complaining of right foot and lower leg pain. Exam Vital Signs Vital Sign - Last Date Time Temp Pulse Resp B/P Pulse Ox O2 Delivery O2 Flow Rate FiO2 08/24/17 13:25 115/71 92 08/24/17 13:08 36.8 97 17 Room Air 08/24/17 04:30 2.50 Intake and Output 08/23/17 08/23/17 08/24/17 Cumulative From/Thru 15:00 23:00 07:00 08/18/17 22:35 - 08/24/17 06:17 Intake Total 1018 ml 810 ml 20299 ml Output Total 2000 ml 900 ml 92851 ml Balance -982 ml -90 ml 500 ml Intake Oral 1018 ml 400 ml 6504 ml IV Total 410 ml 6846 ml Output Urine Total 2000 ml 900 ml 45451 ml # Voids 4 # Bowel Movements 1 1 6 Exam GENERAL: Alert, not in distress, cooperative, weak HEAD: atraumatic, normocephalic, no bruises. EYES: EOMI, anicteric, able to fully open and close eyelids SKIN: Skin color normal, turgor normal. Patient has pressure ulcers present on admission - Stage 3 pressure ulcer to R posterior gluteal/thigh fold, beefy red wound bed, macerated, ruffled margins with mild epibole. 1.5 cm L x 1.5 cm W x 0.2 cm D. Stage 2 pressure ulcer to R intergluteal fold with beefy red wound bed, macerated margins. 1 cm L x 1 cm W x 0.2 cm D.Patient also has skin Candidiasis which is being treated with Nystatin. EAR, NOSE, MOUTH, THROAT: Lips, oral mucosa, tongue gums, oropharynx are moist , pink, no lesions. Ears normal appearance, no lesions. NECK: no jugulovenous distention; supple ROM normal. ABDOMEN: Abdomen soft, non-tender. No masses or organomegaly. MUSCULOSKELETAL: ROM full, muscles are not tender EXTREMITIES: no pitting edema in LE, no new deformities or skin discoloration. NEURO: Alert, oriented X 3, Cranial nerves II-XII intact, Grossly normal motor function. PULSES: 2+ radial, 2+ carotid REVIEW OF SYSTEMS: GENERAL: + malaise, no fevers., SEE HPI HEENT: Negative for frequent or significant headaches All other reviewed and negative other than HPI. IVs and Medications Medications Reviewed: Medications were reviewed in detail Lab and Diagnostics Result Diagram: 08/21/17 1115 08/22/17 0535 Microbiology Blood Cultures Pending X-Rays, CTs and MRIs Official XR Right foot read pending Official CXR read pending 12-lead ECG Sinus rhythm HR 98 Assessment & Plan Patient is a 67 y/o Female with past medical history of DMT2, CHF, DVTs on Warfarin, and recurrent abscesses with two weeks of lower extremity swelling and erythema. She has recently completed a 7 day antibiotic regimen 2 days ago of Augmentin and Cipro. Last abx dose was 2 days ago. She presented with right lower extremity erythema, edema and pain in the right foot. Patient also has multiple ulcers on her buttocks. Patient was diagnosed with Acute Right Foot Diabetic Ulcer, new 0.5x0.5" ulcer to lateral aspect of R 5th metatarsal. Acute Cellulitis of the Right Lower Extremity Acute Right Foot Diabetic Ulcer, new 0.5x0.5" ulcer to lateral aspect of R 5th metatarsal. Acute Cellulitis of the Right Lower Extremity - improving - Elevated ESR and radiologic findings suggestive of osteomyelitis - Podiatry and infectious disease have been consulted, help appreciated - Patient was not able to have MRI secondary to anxiety and claustrophobia Plan - c/w IV Vancomycin/meropenem for now. Stop vancomycin today, continue with meropenem for a total of 1 week as per ID recommendation - PT/OT - placement Patient has pressure ulcers present on admission - Stage 3 pressure ulcer to R posterior gluteal/thigh fold, beefy red wound bed, macerated, ruffled margins with mild epibole. 1.5 cm L x 1.5 cm W x 0.2 cm D. Stage 2 pressure ulcer to R intergluteal fold with beefy red wound bed, macerated margins. 1 cm L x 1 cm W x 0.2 cm D. Patient also has skin Candidiasis which is being treated with Nystatin. Chronic pain - Stable -Continue with home medications Microcytic Anemia - Stable, probably anemia of chronic disease and iron deficiency anemia Chronic Congestive Heart Failure, type unknown - Stable - Continue current meds Type 2 Diabetes Mellitus - Stable - Continue current meds History of lower extremity DVT - Patient is on Coumadin - I discussed with the patient the risks of anticoagulation - risk of severe bleeding, intracranial bleeding, subsequent disability or even as a result of bleeding while on ACT; patient is willing to accept the risks and continue with ACT. - Monitor INR daily, adjust Coumadin as needed. Lovenox twice a day until INR is above 2. DVT PROPHYLAXIS: Lovenox/Coumadin Code status: Patient would like to be full code Disposition: discharge in 2-3 days after patient improves. Plan of care discussed with patient, treatment team; Labs, radiology tests reviewed. Plan of care, available alternatives were discussed and reviewed with patient. All questions answered. Patient verbalized understanding, approved and agreed to plan of care. GI Prophylaxis: Proton Pump Inhibitor VTE Prophylaxis: Theraputic Anticoag with Warfarin VTE Mechanical Devices: Intermittant Pneumatic CD Resuscitation Status: CPR: Attempt Resuscitation Armando Potts MD Aug 24, 2017 14:08
--- NOTE | 2017-08-24 15:09 | NUR ---
ASSISTED TRANSFER : Gave access to [facility] per PLANNER/SCHEDULER and MD orders
--- NOTE | 2017-08-24 15:14 | NUR ---
NUTRITION FOLLOW-UP: ASSESS: 67 YO female admitted for RLE cellulitis and diabetic foot ulcer of the sub-fifth metatarsal head s/p conservative debridement per podiatry, rule out osteomyelitis. Additional pt with infected bullae R pretibial site and multiple ulcer on buttock. Wound care is following. She is tolerating PO well on diabetic diet, with Po 50-100% of most meals. Pt had not tried the Guillermo yet but was willing to try it. She is motivated to make dietary changes. Diabetic diet was reviewed with pt and discussed importance of protein for wound healing. PMHx: DM type 2, CHF, DVT, recurrent abscesses, acid reflux. LABS: Reviewed. CO2 37, Glu 111, Ca 7.6 MEDS: Reviewed. GI: BM x 1 (08/24) SKIN: RLE cellulitis, diabetic foot ulcer (sub-fifth metatarsal head) s/p conservative debridement per podiatry, infected bullae R pretibial site and multiple ulcer on buttock CURRENT WT: 107.1 kg. BMI 49.3kg/m2, admit wt: 105.6kg, IBW: 43.6 kg Adj BW: 59.1 kg. DIET: Diabetic. PO 50-100% EST. NEEDS (WOUNDS, OBESITY): 1488-4557 kcals (30-35 kcals/kg Adj BW), 70-105 g protein (1.2-1.8 g/kg Adj BW) NUTRITION DIAGNOSIS: 1.) Increased nutrient needs related to increased demand for nutrients as evidenced by current skin issues.--PERSISTS NUTRITION INTERVENTION: 1.) Continue Guillermo w/ diet lemon [place] soda to aide in wound healing BID 2.) DM diet education was provided 08/23 and outpt referral was completed. Reviewed diabetic diet 08/24 and answered any questions pt had. MONITOR / EVAL: wounds, PO intake, labs, nutritional status. Follow per moderate nutritional risk guidelines.
--- NOTE | 2017-08-24 15:36 | NUR ---
Social Work: Continued Discharge Planning/Multidisciplinary Rounds D: EMR reviewed. Pt is on day 5 of hospitalization. Pt discussed in multidisciplinary rounds and is not medically stable for discharge, anticipate 1-2 more days. Pt to finish abx in hospital prior to d/c to SNF. SW followed-up with pt regarding choice for SNF. Silvervue tablet provided. Pt chose [facility] and [facility] for choice. Pt also requested [facility] application to be provided to her for future reference. JACQUELINE provided this. ACCOUNTS PAYABLE CLERK requested to schedule PCP appointment and will do so prior to d/c. Paperwork and PASRR in folder. SW will continue to follow. A: Pt for whom a SNF is medically necessary. P: Referral made to [facility] and [facility] for review. GISELL requested to schedule PCP appointment and will do so prior to d/c. Paperwork and PASRR in folder. SW will continue to follow for needs. ARMAND Koehler Addendum: 08/24/17 at 1717 by KENIA DALEY SS T/C from Kacie at [facility] who is agreeable to accept pt with [facility] to follow. ARMAND Koehler
--- NOTE | 2017-08-24 16:21 | PCM.PHAPRO ---
Progress Warfarin Management by Pharmacy: -Indication: history of DVT's -Home Dose: warfarin 6mg daily -Goal Inr: 2-3 -Concurrent Anticoagulation: none (enoxaparin bridging was discontinued on 08/23 due to therapeutic inr) -Drug Interactions: none noted -Coagulation Trends: Aug 20-Aug 21-Aug 22-Aug 23-Aug 24-Jul 1.2 1.55 1.93 2.14 2.35 2.78 0.35 0.38 0.21 0.21 0.43 6MG 6MG 5 5 5 3MG Plan: inr remains therapeutic and at the high range of normal. will give a one time reduced dose of warfarin 3mg Lana Marques [facility] Aug 24, 2017 16:21
[2017-08-24] MEDS ORDERED: diphenhydrAMINE 25 mg Capsule PO PRN (16:30)
[2017-08-24 17:07] LABS: BASOPHILS % (AUTO) 0.3 % (0-3); EOSINOPHILS % (AUTO) 3.2 % (0-5); MONOCYTES % (AUTO) 7.8 % (4-12); Mean Corpuscular Hemoglobin 23.2 pg (27.0-35.0); Mean Corpuscular Volume 83.3 fL (81-100); NEUTROPHILS % (AUTO) 64.7 % (40-74); Platelet Count 278 bil/L (150-400)
[2017-08-24 17:23] LABS: ERYTHROCYTE SEDIMENTATION RATE 70 mm/hr (0-40)
--- NOTE | 2017-08-24 18:09 | NUR ---
ACTIVITY Oxicodone 10 mg PO has been helpful for pain control. Patient always rates her pain as 10/10. Via FELDT scale patients pain level is 0/10 after her pain medication. Tolerating liquids PO and her diet well. Denies nausea. No emesis noted. Denies SOB. Patient was able to ambulate in the hallway with 1 PA and the FWW. Sat in the chair for a couple of hours. Tolerated activity fairly. Dressing changed by WCS.
--- NOTE | 2017-08-24 18:14 | PROG NOTE ---
[address] [address] PROGRESS NOTE PATIENT: GUSTAVO SIMPSON : 1950 MR#: [id number] ADMIT: 08/19/2017 JOB ID: [id number] INFECTIOUS DISEASE FOLLOWUP: DATE: 08/24/2017 REASON FOR FOLLOWUP: Multiple soft tissue processes. INTERVAL HISTORY: Overnight, the patient reports no fevers, chills, or sweats. No significant new pulmonary or GI symptoms. She still has some pain in her right distal williamson but it is improved. No other new focal complaints. PHYSICAL EXAMINATION: Reveals an afebrile woman. She has been afebrile during her almost one full week here. Temp 36.8, pulse 97, respiratory rate 12, blood pressure 115/71. She is saturating well on room air. She is in no distress whatsoever. Lungs clear. Abdomen obese. The patient was rolled over and her buttocks examined. She has stage 2 pressure ulcer in the right mid buttock. It is not grossly infected nor broken down. Additionally she has the area of cellulitis underlying a large bullous lesion in the right lower extremity. Recall that bullous lesion was drained and she is now left with some almost blackish discoloration with some granulation tissue at the site where the bullae was drained and removed. LABORATORY DATA: We have no recent labs on this patient, except an INR that was done today. Her last CRP and sed rate were both quite elevated; however ASO was negative. Cultures of the foot which we took from the smaller lesion at the base of the right 5th toe yielded coag-negative staph and Corynebacterium striatum which are probably of no clinical significance. MRSA screen was negative. Blood cultures were negative. IMAGING: X-ray of the foot on the right showed no changes consistent with osteo. IMPRESSION: This is a bit of a difficult case, but at this point, I think the patient's infection in her right lower leg is largely resolved. One peculiar feature of this case is the dark discoloration underlying the area where the large bullous lesion was previously present but this does not appear frankly necrotic and is almost nontender; in fact there is no warmth, no drainage and no purulence. Her buttock lesion was carefully examined and it does not appear to be infected in any way at this point. RECOMMENDATIONS: 1. I have ordered a CBC, sed rate and CRP for tonight. 2. Assuming her inflammatory parameters are somewhat improved, I think we could probably wrap up her antibiotic therapy tomorrow and the patient could be discharged home. 3. The patient should be followed at the Wound Clinic in the [place] area however, as I am still a bit concerned about the large open area of skin on her right lower extremity and her diabetic status. I will continue to follow this patient and see her at least tomorrow. We discussed fdc with the patient. The patient does not want to go to a fdc or rehab, as she can ambulate. I agree with that decision as long as she can be followed in Wound Care.
[2017-08-24 20:19] VITALS: BP 141/77; PULSE 103; RESP 16; O2SAT 94
[2017-08-24] MEDS: Insulin GLARgine 100 Unit/mL Syringe SUBQ SCH (20:25)
--- NOTE | 2017-08-25 00:37 | NUR ---
Pain/Skin On initial assessment, patient stated pain 10/10 on pain scale. MS Contin administered. Pannus area cleaned and nystatin ointment applied. Pannus appeared red. Patient's left leg appeared dry and had a crepe like texture around the lower leg. Mepilex on buttocks was intact. Nystain ointment applied all along macerated area. VSS. Call light within reach. Will continue hourly rounding.
[2017-08-25] MEDS: Meropenem Inj 1,000 MG in 0.9% Sodium Chloride 100 ML IV SCH ×2 (03:25→12:05)
[2017-08-25 05:47] VITALS: BP 132/79; PULSE 79; RESP 16; O2SAT 94
[2017-08-25] MEDS: 0.9% Sodium Chloride 1,000 ML IV SCH (06:15)
[2017-08-25] MEDS: Insulin LISPRO 300 Unit/3 mL Inj SUBQ SCH ×4 (07:55→12:05)
[2017-08-25] MEDS: Fluticasone 100 mCg Inhaler INHALATION SCH (09:36)
[2017-08-25] MEDS: Potassium Chloride 20 mEq SR Tablet PO SCH (09:36)
[2017-08-25] MEDS: Morphine ER 30 mg (MS Contin) Tablet PO SCH (09:37)
[2017-08-25] MEDS: Vancomycin 125 mg Oral Capsule PO SCH (09:38)
[2017-08-25 09:43] VITALS: BP 108/68; PULSE 81
[2017-08-25] MEDS: MeTOProlol XL 25 mg ER24 Tablet PO SCH (09:46)
[2017-08-25 10:06] LABS: INR 1.9 ratio
--- NOTE | 2017-08-25 10:15 | PROG NOTE ---
[address] [address] PROGRESS NOTE PATIENT: GUSTAVO SIMPSON : 1950 MR#: [id number] ADMIT: 08/19/2017 JOB ID: [id number] DATE: 08/25/2017 REASON FOR FOLLOWUP: Cellulitis, right lower extremity. INTERVAL HISTORY: Overnight, the patient has felt relatively well. No fevers, chills, or new shortness of breath. No nausea, vomiting, or diarrhea. She notes that her right leg pain is much improved, and she wants to go home rather than to a SNF. PHYSICAL EXAMINATION: Reveals an afebrile woman. Temp 36.6, pulse 81, respiratory rate 16, blood pressure 108/68, saturating well on room air. No acute distress. Examination of the mental status reveals it to be clear. Oral cavity negative. Lungs relatively clear. Abdomen obese soft, nontender. The right lower extremity area of cellulitis which was underneath the large bleb is much improved and I see no active signs of infection, though there is some discoloration present. The area is neither warm nor tender. LABORATORIES: Include white count 6500 yesterday, not repeated today. I did do a CRP yesterday to see how it improved and it has gone down from 7.5, a week ago to 1.3 yesterday. Sed rate has not changed much and it remains more or less stable at 70, but sedimentation rates are much slower to respond. Recall that the streptozyme was also negative. Our cultures of the foot grew only coag-negative staph and chronic bacteria, and that was from the foot lesion at the base of the right 5th toe. The culture we performed from the bleb overlying the cellulitis is negative. IMPRESSION: This patient had cellulitis underneath the bleb on the right lower extremity, which is improved considerably during our week or so of intravenous antibiotics. Her CRP has dropped as her cellulitis has clinically improved. The culture from the right 5th toe base did not grow any pathogens and Podiatry thinks that there was no osteo present, and I am inclined to agree. At this point, I think our antibiotics are essentially done. RECOMMENDATIONS: 1. The antibiotic therapy we are concluding this morning. 2. The patient can be discharged without antibiotics from the ID point of view. 3. She should be followed up at the [facility] in [place] as it is closer to her home, or the one here which [place] bit of a drive. 4. She may also benefit from some home PT as she is quite debilitated. 5. The patient's Muse should be removed prior to her discharge. 6. ID will go ahead and sign off today.
--- NOTE | 2017-08-25 11:55 | NUR ---
ESTABLISHMENT APPOINTMENT : Sched[facility] 09/13/17 check in at 345PM for 4PM appointment with Updated CERTIFIED MIDWIFE
[2017-08-25] MEDS ORDERED: OXYC-474 PO (12:51)
[2017-08-25] MEDS ORDERED: TORS20TA3 PO (12:51)
[2017-08-25] MEDS ORDERED: MS15TCR PO (12:51)
[2017-08-25] MEDS ORDERED: MS30TCR PO (12:51)
[2017-08-25] MEDS ORDERED: PREG100C PO (12:51)
--- NOTE | 2017-08-25 12:52 | NUR ---
Inpatient Wound Nurse Patient seen in follow up for multiple wounds. R 5th met head wound unchanged and dressing is intact with essentially no drainage. C-shaped moleskin was left in place under Mepilex. Patient will follow up with Dr. Worley, podiatry. Dressing on RLE intact with essentially no drainage noted. Area of drained bulla is very dark and dry, although patient stated that pain is greatly improved. Specific wound beds are beefy red and dry with black margins that extend outwardly, lightening to purple. Wound edges are distinct and intermittently adhered. Both of these wounds were blotted with NS-soaked gauze, then blotted dry and covered with one large bordered sacral Mepilex with silicone facing. Staff nurse may change PRN. Yeast infestation of perineum, panniculus and groin continue to improve and appear less erythemic, at this time coated with Nystatin ointment. Once ointment has dried a bit, spacers should be placed as daily maintenance, such as Mepilex sheet foam, Kerlix unrolled and placed into folds, or cotton fabric that can be removed and replaced when moist. Hydrocolloid to glut PI continues patent.
[2017-08-25] MEDS: Morphine ER 15 mg (MS Contin) Tablet PO SCH (12:59)
--- NOTE | 2017-08-25 12:59 | PCM.DIMED ---
Discharge Instructions Date of Service Aug 25, 2017 Dates of Hospitalization Aug 19, 2017 at 02:07 Discharge Diagnosis Discharge Diagnosis Acute Right Foot Diabetic Ulcer, new 0.5x0.5" ulcer to lateral aspect of R 5th metatarsal. Acute Cellulitis of the Right Lower Extremity Pressure ulcers present on admission - Stage 3 pressure ulcer to R posterior gluteal/thigh fold, Stage 2 pressure ulcer to R intergluteal fold with beefy red wound bed, macerated margins. Skin Candidiasis which is being treated with Nystatin. Chronic pain, Microcytic Anemia, Chronic Congestive Heart Failure, type unknown , Type 2 Diabetes Mellitus, History of lower extremity DVT(on Warfarin Diet Discharge Diet: Low fat, Low Sodium, Heart Healthy, Diabetic Activity Discharge Activity: Other (PT/OT) Patient Instructions Patient Instructions Patient will need physical therapy and occupational therapy sessions daily, she will also need wound care per facility protocol. Patient is on Coumadin, her INR should be checked weekly and Coumadin should be adjusted. Patient should follow up with her primary care doctor and wound clinic in the outpatient setting after discharge from longterm facility Follow-up with PCP in: Other (follow-up with primary care provider and wound clinic.) Armando Potts MD Aug 25, 2017 12:59
[2017-08-25] MEDS ORDERED: MYCC TOPICAL (13:00)
[2017-08-25 13:04] VITALS: BP 112/67; PULSE 98; RESP 18; O2SAT 92
--- NOTE | 2017-08-25 13:55 | NUR ---
Social Work- Discharge/Multidisciplinary Rounds Data: EMR reviewed. Pt is on day 6 of hospitalization. Pt discussed in multidisciplinary rounds, pt to discharge today. Discharge orders are active. T/C to Beverly at [facility] who is agreeable to accepting pt today. SW created packet and faxed orders. UNIFORM MAKER made appt at [facility], pt updated and provided an appt reminder card. Pt and agreeable to discharge plan. Facility to transport pt, wheelchair transport at approximately 1530. Paperwork in chart, PASRR in packet. No additional d/c needs. Assessment: Pt for whom SNF is medically indicated. Plan: Pt to d/c to [facility] with [facility] to follow, transport via wheelchair van at approximately 1530. [facility], pt/family, RN all updated and agreeable to plan. Roxana Roy, STICKER OPERATOR
--- NOTE | 2017-08-25 16:31 | NUR ---
Discharge Pt discharged to [facility], [facility] via cabulance and 1635 hrs. PIV removed intact. Muse catheter remained in place and draining to gravity. VSS. Pain controlled with PO morphine and oxycodone. Dressings were clean, dry, and intact. Spouse assisted with removal of pt's personal possessions. No personal possessions were left behind. Report called to admission nurse at [facility].
--- NOTE | 2017-08-25 17:34 | PCM.DC.MED ---
Discharge Summary Date of Service Aug 25, 2017 Dates of Hospitalization Date of Hospital Admission Aug 19, 2017 at 02:07 Date of Discharge: Aug 25, 2017 Providers: Admitting Physician: Chad Bermudez MD Primary Care Physician: Melanie Attending Physician: Armando Potts MD Diagnosis at Time of Discharge Diagnosis at Time of Discharge Acute Right Foot Diabetic Ulcer to lateral aspect of R 5th metatarsal. Acute Cellulitis of the Right Lower Extremity. Pressure ulcers present on admission - Stage 3 pressure ulcer to R posterior gluteal/thigh fold, Stage 2 pressure ulcer to R intergluteal fold with beefy red wound bed, macerated margins. Skin Candidiasis which is being treated with Nystatin. Chronic pain, Anemia of chronic disease plus iron deficiency anemia, Chronic Congestive Heart Failure, type unknown, Type 2 Diabetes Mellitus, History of lower extremity DVT(on Warfarin) Procedures XRay, CTs & MRIs PROCEDURE: X-RAY RIGHT TIBIA/FIBULA, TWO VIEWS ([id number]) INDICATIONS: r foot and leg swelling and erythema, diabetic TECHNIQUE: 2 views of the tibia and fibula were acquired. COMPARISON: None. FINDINGS: Bones: No fractures or dislocations. No suspicious bony lesions. Soft tissues: No suspicious soft tissue calcifications or masses. IMPRESSION: No acute disease. Note: These findings are concordant with the preliminary interpretation. PROCEDURE: X-RAY RIGHT FOOT COMPLETE, MINIMUM THREE VIEWS ([id number]) INDICATIONS: Right foot and leg swelling and erythema, diabetic TECHNIQUE: 3 views of the foot were acquired. COMPARISON: None. FINDINGS: Bones: No fractures or dislocations. No definite bony lesions. There is mild periosteal thickening involving the needle border of the second and third metatarsal bones, and on the oblique views at the lateral aspect of the fifth metatarsal. Small vessel calcifications indicate likelihood of long-standing diabetes. Soft tissues: No tibiotalar joint effusion. Achilles tendon appears normal. IMPRESSION: Small vessel calcifications noted consistent with long-standing diabetes. Periosteal changes as discussed above involving the second, third and fifth metatarsal bones, but without definite findings diagnostic of osteomyelitis. Old trauma might explain the appearance. The emergency room physician is aware of the fifth metatarsal findings, and has some degree of concern for osteomyelitis in that area. Depending on the clinical status followup by contrast enhanced MR scanning may be warranted. Note: These findings are concordant with the preliminary interpretation. ECG 12 Lead Sinus rhythm HR 98 Hospital Course Patient is a 67 y/o Female with PMH of DMT2, CHF, DVTs on Warfarin, Hx of recurrent cellulitis/abscesses/wound infection with two weeks of lower extremity swelling and erythema. She completed 7 day course of PO antibiotics prior to this admission. Patient presented with right lower extremity erythema, edema and pain in the right foot. Patient was diagnosed with Acute Cellulitis of the Right Lower Extremity, Acute Right Foot Diabetic Ulcer to lateral aspect of R 5th metatarsal. Osteomyelitis was suspected and was ruled out later. Patient was not able to have MRI even with mild sedation. ID and Podiatry were consulted and helped with management. Cellulitis was treated with IV Meropenem. Patient had pressure ulcers present on admission - Stage 3 pressure ulcer to R posterior gluteal/thigh fold, Stage 2 pressure ulcer to R intergluteal fold. Wound care was consulted and helped with management. Patient was also diagnosed with skin candidiasis which was treated with Nystatin. She had Hx of DVT and was on Warfarin/Lovenox bridge. Patient was seen and examined on the day of discharge. Physical therapy and occupational therapy were consulted. The patient was very weak and deconditioned, she was not able to take care of herself. Patient was not able to get to the commode in time. During her hospitalization replaced Muse catheter to prevent wound soiling. After patient improved she was discharged to SNF with recommendation to follow up with her PCP and wound clinic for further management of her medical problems. Patient has history of chronic pain and she is taking opioids. Patient was aware that her periods may cause physical and psychological addiction. Patient Condition @ Discharge: good Discharge Disposition: home Discharge Activity: PT/OT Discharge Diet: regular diabetic diet, heart healthy, low fat, low salt, high fiber Information Provided to Patient: information about discharge medications Discharge Medications: I discussed with patient medication dosage, usage, goals of therapy, side effects, alternatives. During discharge patient was allert, oriented, able to make own informed decisions. We discussed possible severe side effects, adverse reactions, benefits, risks, alternatives of current and newly prescribed medications and diagnostic procedures. Patient verbalized understanding and agreed to current plan of care and discharge. TIME SPENT IN DISCHARGE ACTIVITY: activity greater then 30 minutes spent in discharge activity. 1. Discussed with patient/ family re: discharge plan of care/treatment, and follow up care/services. 2. Patient/family agreed with discharge plan and further plan of care, all questions were answered/addressed, no further questions at the time of discharge. Exam Vital Signs (Last) Date Time Temp Pulse Resp B/P Pulse Ox O2 Delivery O2 Flow Rate FiO2 08/25/17 13:04 36.7 98 18 112/67 92 Room Air 08/24/17 04:30 2.50 Test 08/19/17 00:33 08/19/17 00:38 08/19/17 04:30 08/19/17 05:30 Lactic Acid Level 1.5mmol/L (0.4-2.0) Magnesium Level 1.9mg/dL (1.6-2.6) Iron Level 37ug/dL (35-150) Total Iron Binding Capacity 252ug/dL (250-450) Percent Iron Saturation 15%sat (15-50) Unsaturated Iron Binding 214.8ug/dL Total Bilirubin 0.2mg/dL (0.0-1.2) Aspartate Amino Transf (AST/SGOT) 15U/L (0-50) Alanine Aminotransferase (ALT/SGPT) 8U/L (0-32) Alkaline Phosphatase 93U/L (25-165) Total Creatine Kinase 44U/L (21-215) Pro-B-Type Natriuretic Peptide 86pg/mL (0-301) Total Protein 7.8g/dL (6.4-8.4) Albumin 3.1g/dL (3.4-5.0) Hold [place] Top Tube Received (Received) Procalcitonin 0.05ng/mL (0.00-0.08) Urine Color Yellow (YELLOW) Urine Appearance Hazy (CLEAR,HAZY) Urine pH 5.5 (5.0-8.0) Urine Specific [place] 1.015 (1.003-1.035) Urine Protein 30mg/dL (NEG,TRACE) Urine Glucose (UA) 1000mg/dL (NEGATIVE) Urine Ketones Negativemg/dL (NEGATIVE) Urine Occult Blood Large (NEGATIVE) Urine Nitrite Negative (NEGATIVE) Urine Bilirubin Negative (NEGATIVE) Urine Urobilinogen Normalmg/dL (NORMAL) Urine Leukocyte Esterase Moderate (NEGATIVE) Urine RBC >50/hpf (0-2) Urine WBC >50/hpf (0-5) Urine Epithelial Cells Many/hpf (NONE-MOD) Urine Crystals None seen (NONE SEEN) Urine Bacteria Moderate/hpf (NONE-FEW) Urine Hyaline Casts None/lpf (NONE) Urine Granular Casts None seen (NONE SEEN) Urine Waxy Casts None seen (NONE SEEN) Urine Red Blood Cell Casts None seen (NONE SEEN) Urine White Blood Cell Casts None seen (NONE SEEN) Urine Mucus None seen (None Seen) Urine Trichomonas None seen (NONE SEEN) Urine Yeast Many (NONE SEEN) Urinalysis Comment None Urine Culture Reflexed Indicated Test 08/19/17 12:00 08/19/17 15:30 08/20/17 05:35 08/22/17 05:35 Streptozyme 72.0IU/mL (0.0-200.0) Hold Red Top Tube Received (Received) Hemoglobin A1c 11.5% (4.8-5.6) Sodium Level 140mEq/L (134-144) Potassium Level 4.3mEq/L (3.5-5.2) Chloride Level 97mEq/L (97-108) Carbon Dioxide Level 37mmol/L (18-29) Blood Urea Nitrogen 15mg/dL (8-27) Creatinine 0.75mg/dL (0.57-1.00) Estimat Glomerular Filtration Rate 111mL/min (>59) Glucose Level 111mg/dL (60-99) Calcium Level 7.6mg/dL (8.5-10.1) Test 08/23/17 15:41 08/24/17 05:30 08/25/17 09:25 Vancomycin Level Trough 23.2mcg/mL White Blood Count 6.5th/mm3 (3.8-10.1) Red Blood Count 4.36mil/mm3 (3.90-5.20) Hemoglobin 10.1g/dL (12.0-15.6) Hematocrit 36.3% (35.0-46.0) Mean Corpuscular Volume 83.3fL (81-100) Mean Corpuscular Hemoglobin 23.2pg (27.0-35.0) Mean Corpuscular Hemoglobin Concent 27.8% (32.0-37.0) Red Cell Distribution Width 16.2% (12.3-15.4) Platelet Count 278bil/L (150-400) Neutrophils (%) (Auto) 64.7% (40-74) Lymphocytes (%) (Auto) 23.7% (14-46) Monocytes (%) (Auto) 7.8% (4-12) Eosinophils (%) (Auto) 3.2% (0-5) Basophils (%) (Auto) 0.3% (0-3) Erythrocyte Sedimentation Rate 70mm/hr (0-40) C-Reactive Protein 1.3mg/dL (0.0-0.5) Prothrombin Time 20.6sec (8.1-12.5) Prothromb Time International Ratio 1.90ratio Microbiology Results Blood Cultures Pending Discharge Medications Discharge Medications Beclomethasone Dipropionate (Qvar) 8.7 Gm Aer.w.adap 80 MCG INHALATION DAILY ( Reported) Calcium Carbonate/Vitamin D3 (Oyster Shell Calcium + D Cplt) 500 Mg-200 Tablet 1 EACH PO DAILY (Reported) Cetirizine HCl (24Hour Allergy) 10 Mg Tablet 10 MG PO DAILY (Reported) Insulin Glargine (Lantus U100 Insulin Vial) 100 Unit/Ml Vial 40 UNIT SUBQ HS ( Reported) Insuln Asp Prt/Insulin Aspart (NovoLOG 70/30 U100 Insulin Flexpen) 100 Unit/Ml Unit 40 UNIT SUBQ BID (Reported) Metoprolol Succinate ER (Metoprolol Succinate ER) 25 Mg Tab.er.24h 25 MG PO DAILY (Reported) Morphine Sulfate ER (MS Contin) 30 Mg Tablet.er 30 MG PO BID Prescribed by: GEORGIE CANNON MD Morphine Sulfate ER (MS Contin) 15 Mg Tablet.er 15 MG PO daily at noon Prescribed by: GEORGIE CANNON MD Nystatin (Nystatin) 60 Applic/15 Gm Cream 1 APPLIC TOPICAL BID Prescribed by: GEORGIE CANNON MD Potassium Chloride (Potassium Chloride) 20 Meq Tab.er.prt 20 MEQ PO DAILY ( Reported) TAKE WITH FOOD Pregabalin (Lyrica) 100 Mg Capsule 100 MG PO TID Prescribed by: GEORGIE CANNON MD Propylene Glycol/Peg 400 (Systane Gel Eye Drops) 10 Ml Drops.gel 1 DROP BOTH_ EARS BID (Reported) Ranitidine (Ranitidine) 150 Mg Capsule 150 MG PO BID (Reported) Torsemide (Torsemide) 20 Mg Tablet 20 MG PO daily @1400 (Reported) Torsemide (Torsemide) 20 Mg Tablet 20 MG PO DAILY Prescribed by: GEORGIE CANNON MD Warfarin Sodium (Warfarin Sodium) 3 Mg Tablet 6 MG PO DAILY (Reported) As needed Oxycodone (Roxicodone) 5 Mg Tablet 10 MG PO QID PRN PRN For Pain Prescribed by: GEORGIE CANNON MD Phenazopyridine (Azo Urinary Pain Relief) 97.5 Mg Tablet 195 MG PO TID PRN PRN bladder pain (Reported) Followup Plan Discharge Diet: Low fat, Low Sodium, Heart Healthy, Diabetic Discharge Activity: Other (PT/OT) Patient Instructions Patient will need physical therapy and occupational therapy sessions daily, she will also need wound care per facility protocol. Patient is on Coumadin, her INR should be checked weekly and Coumadin should be adjusted. Patient should follow up with her primary care doctor and wound clinic in the outpatient setting [facility] Follow-up with PCP in: Other (follow-up with primary care provider and wound clinic.) Armando Potts MD Aug 25, 2017 17:34
== END 2017-08-25 16:28 | DRG 622 ==
LOC: SED 21:10 → OSC 08-19 02:07
PROVIDERS: ADMIT Hospitalist; ATTEND Internal Medicine
PROC: 0HBMXZZ Excision of Right Foot Skin, External Approach (ICD-10-PCS; principal; 2017-08-19)
DX: E11.621 Type 2 diabetes mellitus with foot ulcer (principal); L89.323 Pressure ulcer of left buttock, stage 3; L03.115 Cellulitis of right lower limb; Z68.42 Body mass index [BMI] 45.0-49.9, adult; B37.89 Other sites of candidiasis; L97.519 Non-pressure chronic ulcer of other part of right foot with unspecified severity; E11.65 Type 2 diabetes mellitus with hyperglycemia; E66.01 Morbid (severe) obesity due to excess calories; E11.69 Type 2 diabetes mellitus with other specified complication; I82.501 Chronic embolism and thrombosis of unspecified deep veins of right lower extremity; I50.9 Heart failure, unspecified; E11.319 Type 2 diabetes mellitus with unspecified diabetic retinopathy without macular edema; G89.29 Other chronic pain; E11.42 Type 2 diabetes mellitus with diabetic polyneuropathy; F43.10 Post-traumatic stress disorder, unspecified; Z79.4 Long term (current) use of insulin; Z79.01 Long term (current) use of anticoagulants